=== PATIENT | female | born 1935 | race Caucasian/White ===

== ENCOUNTER 2016-08-01 13:33 | Emergency (ER) | payer OTHER ==
[2016-08-01] MEDS ORDERED: OXYMETAZOLINE 30 ML NASAL SPRAY EACHNARE ONE (13:46)
[2016-08-01] MEDS ORDERED: LETS SOLN TOPICAL 1 EA SYR TP ONE (13:46)
--- NOTE | 2016-08-01 13:50 | EDPHY ---
H & P Smoking Status: Never smoked Time Seen by Provider: 08/01/16 13:41 HPI/ROS: CHIEF COMPLAINT: Epistaxis left-sided HISTORY OF PRESENT ILLNESS: 80-year-old female on daily warfarin for history of pulmonary emboli, complaining of 30 minutes of pre-hospital epistaxis on the left side. Atraumatic. No dizziness. No chest pain. No back pain. No dyspnea. No headache. No nausea or vomiting. PHYSICAL EXAM (Prior to examination, patient consented to physical exam, hands were washed and my usual and customary physical exam procedures followed) 1) GENERAL: Well-developed, well-nourished, alert and oriented. Appears anxious . 2) HEAD: Normocephalic 3) HEENT: sclera anicteric. Left anterior epistaxis identified, slowly bleeding. 4) LUNGS: Breathing comfortably. (Chance Novak) Constitutional: Initial Vital Signs Heart Rate 95 08/01/16 13:35 Respiratory Rate 20 08/01/16 13:35 Blood Pressure 193/108 H 08/01/16 13:35 O2 Sat (%) 92 08/01/16 13:35 O2 Delivery Mode Room Air Allergies/Adverse Reactions: codeine [Codeine] Allergy (Mild, Verified 08/01/16 13:43) NAUSEA Home Medications: Medication Instructions Recorded Levothyroxine 08/04/15 Warfarin Sodium 08/04/15 Albuterol Sulfate [Proventil Hfa] 6.7 gm IH 08/01/16 Beclomethasone Qvar 40 [Qvar 40 120 puffs IH 08/01/16 (*)] Ibesartan 08/01/16 MDM/Departure - MDM Medications Given: Discontinued Medications Oxymetazoline HCl (Afrin Nasal Ona) 2 sprays EACHNARE EDNOW ONE Stop: 08/01/16 13:47 Last Admin: 08/01/16 14:00 Dose: 2 sprays Tetracaine/Epinephrine/Lidocaine (Lets Soln Topical) 1 ea TP EDNOW ONE Stop: 08/01/16 13:47 Last Admin: 08/01/16 14:00 Dose: 1 ea ED Course/Re-evaluation: The patient was evaluated and managed by the Physician Sample Sewer/ Nurse Practitioner. I discussed the patient's presentation and course with the midlevel provider with them and agree with the evaluation. My co-signature indicates that I have reviewed this chart and I agree with the findings and plan of care as documented. I am the secondary supervising physician. (Maribel Mccollum) Was re-evaluated with serial exams. Serial exams performed at 10, 20, 30 minutes post silver nitrate cauterization patient remains hemostatic. Discussed with her my usual and customary epistaxis precautions instructions. Recommend follow up with ear nose and throat on Thursday (today is Thursday). She feels comfortable being discharged. (Chance Novak) - Depart Disposition: Home, Routine, Self-Care Clinical Impression: Acute anterior epistaxis Condition: Good Instructions: Nosebleed (ED) Additional Instructions: If you develop further nosebleed place direct pressure for 20 minutes. If the bleeding continues return to the ER immediately. Referrals: Brit Romano MD [Medical Doctor] - 08/04/16
[2016-08-01] MEDS ORDERED: SILVER NITRATE APPLICATOR 1 APPL TP ONE ×2 (14:21→14:45)
[2016-08-01 14:34] VITALS: TEMP 97.2
[2016-08-01 14:44] LABS: % IMMATURE GRANULYOCYTES 0.5 % (0.0-1.1); ABSOLUTE IMMATURE GRANULOCYTES 0.03 10^3/uL (0.00-0.10); ADD DIFF? NO; ADD MORPH? NO; ADD SCAN? NO; ATYPICAL LYMPHOCYTE FLAG 10 (0-99); FRAGMENT RBC FLAG 0 (0-99); HEMATOCRIT 35.8 % (38.0-47.0); HEMOGLOBIN 12.3 g/dL (12.6-16.3); LEFT SHIFT FLG 0 (0-99); LIPEMIA HEMOLYSIS FLAG 90 (0-99); MEAN CELL HEMOGLOBIN 32.6 pg (27.9-34.1); MEAN CELL HEMOGLOBIN CONCENTR. 34.4 g/dL (32.4-36.7); MEAN PLATELET VOLUME 8.9 fL (8.7-11.7); PLATELET CLUMPS FLAG 10 (0-99); PLATELET COUNT 165 10^3/uL (150-400); RED BLOOD CELL COUNT 3.77 10^6/uL (4.18-5.33); RED CELL DISTRIBUTION WIDTH 13.6 % (11.5-15.2)
[2016-08-01 14:53] LABS: APTT 42.1 SEC (23.0-38.0); INR 2.39 (0.83-1.16); PROTIME(PATIENT) 26.3 SEC (12.0-15.0)
[2016-08-01 16:33] VITALS: BP 179/89; PULSE 79; RESP 16; O2SAT 94
== END 2016-08-01 16:33 | disposition home or self-care (01) ==
PROC: 2Y41X5Z Packing of Nasal Region using Packing Material (ICD-10-PCS; principal; 2016-08-01)
DX: R04.0 Epistaxis (principal); Z79.01 Long term (current) use of anticoagulants

== ENCOUNTER 2016-08-28 06:48 | Emergency (ER) | payer OTHER ==
[2016-08-28 06:56] VITALS: TEMP 97.9
--- NOTE | 2016-08-28 07:03 | EDPHY ---
H & P Stated Complaint: rectal bleeding since Sat, cauterized yesterday at PCP without relief HPI/ROS: CHIEF COMPLAINT: Rectal bleeding. HISTORY OF PRESENT ILLNESS: The patient is an 80-year-old female status post hemorrhoid cauterization yesterday who presents with rectal bleeding that began this morning. She takes coumadin. She reports having two episodes of rectal bleeding on Thursday and Thursday. Her treated her with Preparation H and Afrin. Yesterday her doctor cauterized a bleeding site. Today when she went to the bathroom the toilet bowl was coated in blood. She admits feeling chest heaviness, weakness, and lightheadedness. She denies vomiting, diarrhea, abdominal pain, or other complaints at this time. REVIEW OF SYSTEMS: General: Recent fever, being treated with antibiotics--not sure name of medication. A ten point review of systems was performed and is negative with the exception of the items mentioned in the HPI. Source: Patient Exam Limitations: No limitations - Personal History Current Tetanus/Diphtheria Vaccine: Unsure Current Tetanus Diphtheria and Acellular Pertussis (TDAP): Unsure - Medical/Surgical History Hx Asthma: Yes Hx Chronic Respiratory Disease: No Hx Diabetes: No Hx Cardiac Disease: No Hx Renal Disease: No Hx Cirrhosis: No Hx Alcoholism: No Hx HIV/AIDS: No Hx Splenectomy or Spleen Trauma: No Other PMH: 1. Asthma. 2. Cholecystectomy. 3. Hypothyroidism. 4. DVTs. 5. Tonsillectomy. 6. Hysterectomy. 7. Bilateral tubal ligation. 8. Chronic renal insufficiency. I reviewed the patient's past medical notes. - Social History Smoking Status: Never smoked Additional Social History: Nonsmoker. No alcohol use. Lives at home with her . - Physical Exam Exam: General Appearance: Alert. Vital signs reviewed. Blood pressure 135/80. Eyes: Pupils equal and round, no conjunctival injection, no discharge. Anicteric. ENT, Mouth: Mucous membranes are moist, no oropharyngeal erythema or edema. Neck: No lymphadenopathy, supple. Respiratory: Lungs are clear to auscultation; no wheezes, rales, or rhonchi. Cardiovascular: Regular rate and rhythm; no murmur, rub, or gallop. Gastrointestinal: Abdomen is soft and nontender, no masses or organomegaly, bowel sounds normal. Rectal: Hemorrhoid with blood clot protruding. Any manipulation causes some blood to ooze. Skin: Warm and dry, no rashes on exposed skin, normal color. Back: Nontender to palpation over the thoracolumbar spine. No CVAT. Extremities: No lower extremity edema, no calf tenderness or swelling. Neurological: Alert and oriented. Moving all four extremities easily and equally. Psychiatric: Normal affect. Constitutional: Initial Vital Signs Temperature (C) 36.6 C 08/28/16 06:49 Heart Rate 94 08/28/16 06:49 Respiratory Rate 16 08/28/16 06:49 Blood Pressure 135/80 H 08/28/16 06:49 O2 Sat (%) 95 08/28/16 06:49 O2 Delivery Mode Room Air Allergies/Adverse Reactions: codeine [Codeine] Allergy (Mild, Verified 08/01/16 13:43) NAUSEA Home Medications: Medication Instructions Recorded Levothyroxine 08/04/15 Warfarin Sodium 08/04/15 Albuterol Sulfate [Proventil Hfa] 6.7 gm IH 08/01/16 Beclomethasone Qvar 40 [Qvar 40 120 puffs 08/01/16 (*)] Ibesartan 08/01/16 Medical Decision Making ED Course/Re-evaluation: This 80-year-old female anticoagulated on Coumadin for a history of DVTs presents with bleeding from her hemorrhoid. She had her first two episodes of bleeding on Thursday and Thursday (4-5 days ago). Her primary care provider cauterized the hemorrhoid yesterday and the bleeding stopped for a period of time, but it returned this morning.Water in the toilet bowl was red this this morning. Her has been applying Preparation H and Afrin spray to help control the bleeding. On arrival the blood has clotted and she is not actively bleeding. If I manipulate the hemorrhoid I can elicit a small amount of oozing blood. She does admit to feeling weak and lightheaded. She admits a fever and cough but her primary care provider has already placed her on antibiotics for sinusitis. Her primary care provider also jarett labs and noted a low INR. We will check blood work on this patient. An IV was established and labs ordered. I reviewed the patient's blood work. INR 1.78. Hgb and Hct 13 and 38. Creatinine elevated, slightly higher than previous values. 0800: Reassessed patient. She tells me that since Thursday, she has not been taking her full dose of Coumadin because of the rectal bleeding. Surgifoam applied to external hemorrhoid. Plan for Dr. Alatorre to consult with the patient. 0956: Reassessed patient. 1006: Consulted with Dr. Tuttle, surgery. Patient re-examined. Small clot that was present earlier is now gone (she has used the toilet since my first exam). 11:00The hemorrhoid is not currently bleeding. In addition to Surgifoam pressure has been applied to this site. It was cauterized yesterday by her PCP. Dr Tuttle recommended suturing if needed, but I do not think that suturing is needed. I think that she can safely return home, as she is hemodynamically stable and not currently bleeding. Her INR is subtherapeutic. I recommend surgical follow up and return if bleeding recurs. She is not in pain. the bleeding appears to be coming from the external hemorrhoid and I have no reason to worry about internal hemorrhoids at this time. Nor do I suspect other causes of GI bleeding such as neoplasm, infection, diverticula, and angiodysplasia. - Data Points Laboratory Results: Laboratory Results 08/28/16 07:18 08/28/16 07:18 Medications Given: Discontinued Medications Acetaminophen (Tylenol) 500 mg PO EDNOW ONE Stop: 08/28/16 11:23 Last Admin: 08/28/16 11:30 Dose: 500 mg Departure - Departure Disposition: Home, Routine, Self-Care Clinical Impression: Bleeding hemorrhoid Condition: Good Instructions: Hemorrhoids (ED), Rectal Bleeding (ED) Additional Instructions: Call Dr. Alatorre, surgery, to set up a follow up appointment. Return for any serious worsening of condition. As we discussed, apply pressure if your bleeding returns. Referrals: AVRIL JAIN [Primary Care Provider] - As per Instructions Shar Alatorre MD [Medical Doctor] - As per Instructions Report Scribed for: Rosaura Manuel Report Scribed by: Mathew Red Date of Report: 08/28/16 Time of Report: 07:12 Physician Review and Approval Statement: 08/28/16 07:03 Portions of this note were transcribed by the medical education specialist. I, Dr. Rosaura Manuel, personally performed the history, physical exam, and medical decision- making; and confirmed the accuracy of the information in the transcribed note.
[2016-08-28 07:30] LABS: % IMMATURE GRANULYOCYTES 0.6 % (0.0-1.1); ABSOLUTE IMMATURE GRANULOCYTES 0.05 10^3/uL (0.00-0.10); ADD DIFF? NO; ADD MORPH? NO; ADD SCAN? NO; ATYPICAL LYMPHOCYTE FLAG 10 (0-99); FRAGMENT RBC FLAG 0 (0-99); LEFT SHIFT FLG 10 (0-99); LIPEMIA HEMOLYSIS FLAG 90 (0-99); MEAN CELL HEMOGLOBIN 32.6 pg (27.9-34.1); MEAN CELL HEMOGLOBIN CONCENTR. 34.2 g/dL (32.4-36.7); MEAN CELL VOLUME 95.2 fL (81.5-99.8); MEAN PLATELET VOLUME 9.5 fL (8.7-11.7); PLATELET CLUMPS FLAG 0 (0-99); PLATELET COUNT 155 10^3/uL (150-400); RED BLOOD CELL COUNT 3.99 10^6/uL (4.18-5.33); RED CELL DISTRIBUTION WIDTH 13.1 % (11.5-15.2)
[2016-08-28 07:39] LABS: INR 1.78 (0.83-1.16); PROTIME(PATIENT) 20.8 SEC (12.0-15.0)
[2016-08-28 07:44] LABS: ANION GAP 11 mEq/L (8-16); CALCIUM 10.4 mg/dL (8.5-10.4); CARBON DIOXIDE 24 mEq/l (22-31); CHLORIDE 105 mEq/L (97-110); CREATININE 1.3 mg/dL (0.6-1.0); GLOMERULAR FILTRATION RATE 39; GLUCOSE 119 mg/dL (70-100); POTASSIUM 4.4 mEq/L (3.5-5.2); SODIUM 140 mEq/L (134-144)
[2016-08-28 10:54] VITALS: BP 145/110; PULSE 82; RESP 15; O2SAT 94
[2016-08-28] MEDS ORDERED: ACETAMINOPHEN 500 MG TAB ONE (11:21)
[2016-08-28] MEDS ORDERED: ACETAMINOPHEN 500 MG TAB PO ONE (11:22)
== END 2016-08-28 12:46 | disposition home or self-care (01) ==
DX: K64.9 Unspecified hemorrhoids (principal); J45.909 Unspecified asthma, uncomplicated; Z79.01 Long term (current) use of anticoagulants

== ENCOUNTER 2016-09-17 11:03 | Inpatient (IN) | payer OTHER ==
--- NOTE | 2016-09-17 11:30 | CPEKG ---
Heart Rate: 71 RR Interval: 845 P-R Interval: 152 QRSD Interval: 82 QT Interval: 372 QTC Interval: 405 P Itmann: 74 QRS Itmann: 76 T Wave Itmann: 46 EKG Severity - NORMAL ECG - EKG Impression: SINUS RHYTHM Electronically Signed By: Maine Jackson 17-Sep-2016 15:32:58
[2016-09-17 11:47] LABS: % IMMATURE GRANULYOCYTES 0.4 % (0.0-1.1); ABSOLUTE IMMATURE GRANULOCYTES 0.03 10^3/uL (0.00-0.10); ADD DIFF? NO; ADD MORPH? NO; ADD SCAN? NO; ATYPICAL LYMPHOCYTE FLAG 0 (0-99); FRAGMENT RBC FLAG 0 (0-99); HEMOGLOBIN 13.1 g/dL (12.6-16.3); LEFT SHIFT FLG 0 (0-99); LIPEMIA HEMOLYSIS FLAG 80 (0-99); MEAN CELL HEMOGLOBIN 32.7 pg (27.9-34.1); MEAN CELL HEMOGLOBIN CONCENTR. 33.6 g/dL (32.4-36.7); MEAN CELL VOLUME 97.3 fL (81.5-99.8); PLATELET CLUMPS FLAG 0 (0-99); PLATELET COUNT 190 10^3/uL (150-400); RED BLOOD CELL COUNT 4.01 10^6/uL (4.18-5.33); RED CELL DISTRIBUTION WIDTH 13.2 % (11.5-15.2)
[2016-09-17 11:59] LABS: COLOR LT. YELLOW; LEUKOCYTE ESTERASE,URINE NEGATIVE (NEGATIVE); NITRITE,URINE NEGATIVE (NEGATIVE)
[2016-09-17 12:02] LABS: ANION GAP 11 mEq/L (8-16); CALCIUM 10.5 mg/dL (8.5-10.4); CARBON DIOXIDE 24 mEq/l (22-31); CHLORIDE 103 mEq/L (97-110); CREATININE 1.4 mg/dL (0.6-1.0); GLOMERULAR FILTRATION RATE 36; GLUCOSE 102 mg/dL (70-100); POTASSIUM 4.9 mEq/L (3.5-5.2); SODIUM 138 mEq/L (134-144)
[2016-09-17] MEDS ORDERED: OXYCODONE/APAP 5/325 TAB PO ONE ×2 (12:05→13:42)
[2016-09-17] MEDS ORDERED: OXYCODONE/APAP 5/325 TAB ONE (12:07)
[2016-09-17 12:14] LABS: BACTERIA TRACE /hpf (NONE SEEN); WBC,URINE 0-1 /hpf (0-3)
--- NOTE | 2016-09-17 13:12 | EDPHY ---
H & P Time Seen by Provider: 09/17/16 12:05 HPI/ROS: CHIEF COMPLAINT: Back pain, hemorrhoids HISTORY OF PRESENT ILLNESS: Patient is an 80 year female who presents emergency department with multiple complaints. She states that she has been feeling fatigued over the past 1-2 weeks. She feels as though she has been slowly going downhill. She now complains primarily of low back/sacral pain. She states that radiates upper spine. It is worse with movement and touch. She states her hemorrhoids have been inflamed she saw Dr. Alvarado last week. He performed an exam stated there was nothing to ligate. She states that her hemorrhoids have been improving over the past week. She denies nausea or vomiting. No fevers or chills. No weight loss. No dysuria or frequency. REVIEW OF SYSTEMS: My complete review of systems is negative except as mentioned in the HPI. Past Medical/Surgical History: Includes asthma, hypothyroidism, DVT, hemorrhoids, renal insufficiency Past surgical history: Includes cholecystectomy, tonsillectomy, hysterectomy, tubal ligation Social history: She lives at home Smoking Status: Never smoked Physical Exam: Vital signs noted GENERAL: Moderate acute distress, alert. HEENT: Eyes normal to inspection, normal pharynx, no signs of dehydration. NECK: No thyromegaly, no lymphadenopathy, supple. RESPIRATORY: Clear to auscultation bilaterally, no rales, rhonchi or wheezing. CVS: Regular rate and rhythm, no rubs, murmurs, or gallops. ABDOMEN: Soft, nontender, nondistended, no organomegaly. Benign. BACK: Normal to inspection, no CVA tenderness. Rectal: No palpable mass. Nontender. No active bleeding. Brown stool. SKIN: Normal color, no rash, warm, dry. No pallor. EXTREMITIES: No pedal edema, no calf tenderness, no Homans sign or cords, no joint swelling. NEURO/PSYCH: Alert and oriented x3, normal mood and affect, normal motor sensory exam. Constitutional: Initial Vital Signs Temperature (C) 36.8 C 09/17/16 11:13 Heart Rate 71 09/17/16 11:13 Respiratory Rate 20 09/17/16 11:13 Blood Pressure 148/72 H 09/17/16 11:13 O2 Sat (%) 99 09/17/16 11:13 O2 Delivery Mode Room Air Allergies/Adverse Reactions: codeine [Codeine] Allergy (Mild, Verified 09/17/16 11:13) NAUSEA Home Medications: Medication Instructions Recorded Levothyroxine 08/04/15 Warfarin Sodium 08/04/15 Albuterol Sulfate [Proventil Hfa] 6.7 gm 08/01/16 Beclomethasone Qvar 40 [Qvar 40 120 puffs IH 08/01/16 (*)] Ibesartan 08/01/16 Medical Decision Making - Diagnostics Imaging Results: Imaging Impressions Abdomen CT 09/17/16 12:50 Impression: 1. Diverticulosis sigmoid colon. No evidence for diverticulitis or abscess. 2. Moderate constipation. 3. Other chronic findings as above, which are stable. Results called and discussed with Dr. Maine Jackson, on September 17, 2016 at 1436 hours. ED Course/Re-evaluation: In the emergency department I discussed possible etiologies with the patient. IV was placed. Laboratory studies were obtained. Patient was given morphine 4 mg IV. Because the patient's back pain a presentation CT with IV contrast was ordered. The patient's creatinine was 1.4. She was given normal saline 500 mL IV prior to the study. I rechecked the patient on numerous occasions. She continued to complain of low back pain. On recheck the patient was anxious in had low back pain. She was given Ativan 0.5 mg IV. On recheck the patient stated that medicine did help her. I discussed all results and answer questions. I discussed disposition options. Attempt to get the patient up to ambulate to see if she could be discharged home. She feels too weak. She continues to have low back pain. She will be admitted for further observation. Dr. Lockhart. I discussed this with the hospitalist service. Differential Diagnosis: My differential includes but is not limited to sacral pain, sciatica, disc herniation, malignancy, mass, epidural abscess, rectal abscess, hemorrhoids - Data Points Laboratory Results: Laboratory Results 09/17/16 11:34 09/17/16 11:41 09/17/16 09/17/16 09/17/16 Unknown 12:54 11:41 WBC RBC Hgb Hct MCV MCH MCHC RDW Plt Count MPV Neut % (Auto) Lymph % (Auto) Grundy % (Auto) Eos % (Auto) Baso % (Auto) Nucleat RBC Rel Count Absolute Neuts (auto) Absolute Lymphs (auto) Absolute Monos (auto) Absolute Eos (auto) Absolute Basos (auto) Absolute Nucleated RBC Immature Gran % Immature Gran # Sodium 138 mEq/L mEq/L (134-144) Potassium 4.9 mEq/L mEq/L (3.5-5.2) Chloride 103 mEq/L mEq/L (97-110) Carbon Dioxide 24 mEq/l mEq/l (22-31) Anion Gap 11 mEq/L mEq/L (8-16) BUN 30 mg/dL H mg/dL (7-23) Creatinine 1.4 mg/dL H mg/dL (0.6-1.0) Estimated GFR 36 Glucose 102 mg/dL H mg/dL (70-100) Calcium 10.5 mg/dL H mg/dL (8.5-10.4) Troponin I < 0.012 ng/mL ng/mL (0-0.034) Urine Color Urine Appearance Urine pH Ur Specific [place] Urine Protein Urine Ketones Urine Blood Urine Nitrate Urine Bilirubin Urine Urobilinogen Ur Leukocyte Esterase Urine RBC Urine WBC Ur Epithelial Cells Urine Bacteria Urine Glucose Stool Occult Bld Scrn NEGATIVE (NEGATIVE) 09/17/16 09/17/16 11:34 11:21 WBC 7.61 10^3/uL 10^3/uL (3.80-9.50) RBC 4.01 10^6/uL L 10^6/uL (4.18-5.33) Hgb 13.1 g/dL g/dL (12.6-16.3) Hct 39.0 % % (38.0-47.0) MCV 97.3 fL fL (81.5-99.8) MCH 32.7 pg pg (27.9-34.1) MCHC 33.6 g/dL g/dL (32.4-36.7) RDW 13.2 % % (11.5-15.2) Plt Count 190 10^3/uL 10^3/uL (150-400) MPV 9.0 fL fL (8.7-11.7) Neut % (Auto) 67.8 % % (39.3-74.2) Lymph % (Auto) 26.5 % % (15.0-45.0) Grundy % (Auto) 4.9 % % (4.5-13.0) Eos % (Auto) 0.1 % L % (0.6-7.6) Baso % (Auto) 0.3 % % (0.3-1.7) Nucleat RBC Rel Count 0.0 % % (0.0-0.2) Absolute Neuts (auto) 5.16 10^3/uL 10^3/uL (1.70-6.50) Absolute Lymphs (auto) 2.02 10^3/uL 10^3/uL (1.00-3.00) Absolute Monos (auto) 0.37 10^3/uL 10^3/uL (0.30-0.80) Absolute Eos (auto) 0.01 10^3/uL L 10^3/uL (0.03-0.40) Absolute Basos (auto) 0.02 10^3/uL 10^3/uL (0.02-0.10) Absolute Nucleated RBC 0.00 10^3/uL 10^3/uL (0-0.01) Immature Gran % 0.4 % % (0.0-1.1) Immature Gran # 0.03 10^3/uL 10^3/uL (0.00-0.10) Sodium Potassium Chloride Carbon Dioxide Anion Gap BUN Creatinine Estimated GFR Glucose Calcium Troponin I Urine Color LT. YELLOW Urine Appearance CLEAR Urine pH 6.0 (5.0-7.5) Ur Specific [place] <= 1.005 (1.002-1.030) Urine Protein NEGATIVE (NEGATIVE) Urine Ketones NEGATIVE (NEGATIVE) Urine Blood 3+ H (NEGATIVE) Urine Nitrate NEGATIVE (NEGATIVE) Urine Bilirubin NEGATIVE (NEGATIVE) Urine Urobilinogen 0.2 EU EU (0.2-1.0) Ur Leukocyte Esterase NEGATIVE (NEGATIVE) Urine RBC 1-3 /hpf /hpf (0-3) Urine WBC 0-1 /hpf /hpf (0-3) Ur Epithelial Cells TRACE /lpf /lpf (NONE-1+) Urine Bacteria TRACE /hpf H /hpf (NONE SEEN) Urine Glucose NEGATIVE (NEGATIVE) Stool Occult Bld Scrn Medications Given: Discontinued Medications Fentanyl (Sublimaze) 50 mcg IVP EDNOW ONE Stop: 09/17/16 13:17 Last Admin: 09/17/16 13:46 Dose: Not Given Sodium Chloride (Ns) 1,000 mls @ 0 mls/hr IV ONCE ONE PRN Reason: Wide Open Stop: 09/17/16 13:25 Last Admin: 09/17/16 13:46 Dose: 1,000 mls Lorazepam (Ativan Injection) 0.5 mg IVP EDNOW ONE Stop: 09/17/16 14:21 Last Admin: 09/17/16 14:43 Dose: 0.5 mg Ondansetron HCl (Zofran) 4 mg IVP EDNOW ONE Stop: 09/17/16 13:17 Last Admin: 09/17/16 13:46 Dose: Not Given Oxycodone/Acetaminophen (Percocet 5/325) 1 tab PO EDNOW ONE Stop: 09/17/16 12:06 Last Admin: 09/17/16 12:08 Dose: 1 tab Oxycodone/Acetaminophen (Percocet 5/325) 1 tab PO EDNOW ONE Stop: 09/17/16 13:43 Last Admin: 09/17/16 13:46 Dose: 1 tab Departure - Departure Disposition: [facility] Inpatient Acute Clinical Impression: Weakness Low back pain Qualifiers: Chronicity: acute Back pain laterality: bilateral Sciatica presence: without sciatica Qualified Code(s): M54.5 - Low back pain Condition: Good Referrals: AVRIL JAIN [Primary Care Provider] - As per Instructions
[2016-09-17] MEDS ORDERED: ONDANSETRON 4 MG/2 ML VIAL IVP ONE (13:16)
[2016-09-17] MEDS ORDERED: fentaNYL 100 MCG/2 ML INJ IVP ONE (13:16)
[2016-09-17] MEDS ORDERED: NS 1,000 ML IV ONE (13:24)
[2016-09-17] MEDS ORDERED: IOPAMIDOL (ISOVUE-300) 100 ML BTL IV ONE (13:31)
[2016-09-17] MEDS ORDERED: LORazepam 2 MG/ML INJ ONE (14:15)
[2016-09-17] MEDS ORDERED: LORazepam 2 MG/ML INJ IVP ONE (14:20)
[2016-09-17 15:56] LABS: INR 2.53 (0.83-1.16); PROTIME(PATIENT) 27.5 SEC (12.0-15.0)
[2016-09-17] MEDS ORDERED: ONDANSETRON 4 MG/2 ML VIAL IVP PRN (16:24)
[2016-09-17] MEDS ORDERED: ONDANSETRON DISINTEGRATING 4 MG TAB PO PRN (16:24)
[2016-09-17] MEDS ORDERED: MAGNESIUM HYDROXIDE 30 ML UDCUP PO PRN (16:26)
[2016-09-17] MEDS ORDERED: LACTULOSE 20 GM/30 ML UDCUP PO PRN (16:26)
[2016-09-17] MEDS ORDERED: BISACODYL 10 MG SUPP PR PRN (16:26)
[2016-09-17] MEDS ORDERED: ZOLPIDEM TARTRATE 5 MG TAB PO PRN (17:01)
[2016-09-17] MEDS: oxyCODONE IR 5 MG TAB PO PRN ×2 (17:22→21:35)
[2016-09-17] MEDS: ACETAMINOPHEN 325 MG TAB PO PRN (17:22)
--- NOTE | 2016-09-17 17:43 | GHP ---
[f rep st] HISTORY AND PHYSICAL DATE OF ADMISSION: 09/17/2016 CHIEF COMPLAINT: Fatigue, lower back pain. HISTORY OF PRESENT ILLNESS: an 80-year-old female with a history of DVT, asthma , CKD, hypothyroidism, presenting with fatigue for the past 2 weeks that she attributes to a recent hemorrhoidal bleed the day after [place]. Had intermittent rectal bleeding August 23-. Seen here in the emergency room on August 28, 2016 for rectal bleeding after a hemorrhoid cauterized by her PCP She is followed by Dr. Alvarado, who performed a sigmoidoscopy on 09/09/2016 that showed a small internal hemorrhoid and external hemorrhoid, nothing to band. Pain is another reason she presents today. Has new right-sided hip and sacral pain that is hot and burning in nature. She cannot stand to sit on her buttocks due to the pain. Denies any recent trauma. No fevers, chills or sweats. No nausea, vomiting, diarrhea. No numbness or tingling. No weakness in the leg. Denies dysuria, has been having regular bowel movements. REVIEW OF SYSTEMS: I completed a 10-point review of systems, negative except as noted in HPI. PAST MEDICAL HISTORY: Lower extremity DVT, history of Clostridium difficile, asthma, CKD with a baseline creatinine of 1.3 to 1.4, hypothyroidism (last checked in 2012 at 0.2), history of polio as a teenager, hemorrhoids. PAST SURGICAL HISTORY: Cholecystectomy, with subsequent hemoperitoneum, tonsillectomy, hysterectomy, tubal ligation. FAMILY HISTORY: Mom with ovarian cancer, father with prostate cancer. SOCIAL HISTORY: Lives with her in [place], no tobacco, alcohol or illicit drugs. ALLERGIES: Codeine. HOME MEDICATIONS: 1. Multivitamin. 2. Herbal supplement. 3. Vitamin B12 1000 mcg daily. 4. Ambien p.r.n. 5. Irbesartan 150 mg daily. 6. Coumadin 4 mg daily. 7. Levothyroxine 75 mcg daily. 8. Qvar 2 puffs inhaled daily. PHYSICAL EXAM: VITAL SIGNS: Temperature is 37.2, blood pressure 140/71, heart rate 70s, respirations 16, 94% on room air. GENERAL: Patient is lying in bed, in no acute distress. HEENT: PERRLA, EOMI. Oropharynx clear. CV: Regular rate and rhythm. No murmurs, gallops, or rubs. LUNGS: Clear to auscultation bilaterally. ABDOMEN: Soft, nontender, nondistended. : No suprapubic or CVA tenderness. MUSCULOSKELETAL: Point tenderness over the ilium on the right side, with 5/5 upper and lower extremity strength. NEUROLOGIC: Cranial nerves II-XII intact. Normal sensation in lower extremities to touch. PSYCH: Alert and oriented x3. LABS: WBC 7, hemoglobin 13, hematocrit 39, platelets 190, INR 2.5, PT 27. Sodium 138, potassium 4.9, chloride 103, BUN 30, creatinine 1.4, baseline 1.3 ( glucose 102), calcium 10.5, troponin less than 0.012. TSH pending, CRP and ESR pending. IMAGING: Abdominal CT shows diverticulosis of sigmoid colon. No evidence of abscess. Moderate constipation. ASSESSMENT AND PLAN: 1. Fatigue: H/H stable, negative UA. Check TSH. 2. Lower back/sacral pain: no recent trauma. CT showed constipation, no abscess. She is having normal bowel movements. Afebrile without leukocytosis, thus less suspicion for infection. Point tenderness over her ischium. Check ESR/ CRP and plain films. No flag signs. Could consider MRI. PT/OT to evaluate. We will control pain with low-dose oxycodone. 3. Hypothyroidism: check TSH. 4. History of deep venous thrombosis: continue Coumadin. 5. Chronic kidney disease: creatinine is at baseline. 6. History of hemorrhoids: recent scope showed small internal hemorrhoids, external hemorrhoid, not amenable to banding. H/H stable. Has had minimal bleeding since that time. 7. Asthma, continue home medications. 8. Diet: Regular. 9. DVT prophylaxis, on Coumadin. DISPOSITION: Patient warrants inpatient admission, given inability to ambulate , requiring opioids and PT evaluation. /[id number]/MODL MTDD
[2016-09-17 17:49] LABS: C-REACTIVE PROTEIN 5.4 mg/L (<10.0)
[2016-09-17 18:05] LABS: SEDIMENTATION RATE 12 MM/HR (0-30)
[2016-09-17] MEDS ORDERED: NS 1,000 ML IV SCH (19:00)
[2016-09-17] MEDS: SENNOSIDES/DOCUSATE SODIUM TAB PO SCH (20:16)
[2016-09-18] MEDS: oxyCODONE IR 5 MG TAB PO PRN ×2 (03:28→19:45)
[2016-09-18 05:50] LABS: ANION GAP 6 mEq/L (8-16); CALCIUM 9.2 mg/dL (8.5-10.4); CARBON DIOXIDE 23 mEq/l (22-31); CHLORIDE 109 mEq/L (97-110); CREATININE 1.2 mg/dL (0.6-1.0); GLOMERULAR FILTRATION RATE 43; GLUCOSE 86 mg/dL (70-100); POTASSIUM 4.6 mEq/L (3.5-5.2); SODIUM 138 mEq/L (134-144)
[2016-09-18] MEDS ORDERED: LEVOTHYROXINE 75 MCG TAB PO SCH (06:00)
[2016-09-18 06:49] LABS: INR 2.77 (0.83-1.16); PROTIME(PATIENT) 29.6 SEC (12.0-15.0)
[2016-09-18] MEDS: BECLOMETHASONE QVAR 80 MDI IH SCH (08:30)
[2016-09-18] MEDS ORDERED: IRBESARTAN 150 MG TAB PO SCH (09:00)
[2016-09-18] MEDS ORDERED: Herbals/Supplements -Info Only PO SCH (09:00)
[2016-09-18] MEDS: CYANO/VITAMIN B12 1000 MCG TAB PO SCH (09:20)
[2016-09-18] MEDS: ACETAMINOPHEN 325 MG TAB PO PRN ×3 (09:22→20:54)
[2016-09-18] MEDS: MULTIVITAMINS 1 EACH TAB PO SCH (09:22)
[2016-09-18] MEDS: SENNOSIDES/DOCUSATE SODIUM TAB PO SCH ×2 (09:22→20:54)
[2016-09-18] MEDS: POLYETHYLENE GLYCOL 3350 17 GM PKT PO PRN (09:23)
[2016-09-18] MEDS ORDERED: WARFARIN SODIUM 4 MG TAB PO SCH (16:00)
--- NOTE | 2016-09-18 16:10 | HOSPPROG ---
Hospitalist Progress Note Assessment/Plan: * Severe neck pain and posterior cervical headache -nothing to suggest meningitis - no fever/leukocytosis/ ESR 12 -head CT negative -MRI Cspine negative -? muscular * DVT - therapeutic on warfarin * CKD - at baseline * Hemorrhoids -recent cauterization by PCP -f/u flex sig with Dr. Alvarado - no intervention Subjective: Severe pain occipital headache and upper cervical spine for 5 days, radiates down to lumbar region Objective: Vital Signs Temp Pulse Resp BP Pulse Ox 37.1 C 66 18 147/78 H 96 09/18/16 15:17 09/18/16 15:17 09/18/16 15:17 09/18/16 15:17 09/18/16 15:17 Laboratory Results 09/17/16 Unknown 09/18/16 04:55 09/17/16 09/18/16 09/19/16 05:59 05:59 05:59 Intake Total 925 760 Balance 925 760 PT 29.6 SEC (12.0-15.0) H 09/18/16 04:55 INR 2.77 (0.83-1.16) H 09/18/16 04:55 - Physical Exam Constitutional: no apparent distress, appears nourished, not in pain Cardiovascular: regular rate and rhythym, no murmur, rub, or gallop Respiratory: no respiratory distress, no rales or rhonchi, clear to auscultation Gastrointestinal: normoactive bowel sounds, soft, non-tender abdomen, no palpable masses Skin: no rashes or abrasions, no fluctuance, no induration Neurologic: AAOx3, sensation intact bilaterally Psychiatric: interacting appropriately, not anxious, not encephalopathic, thought process linear ICD10 Worksheet Patient Problems: Problems Problem Status Onset Low back pain Acute Weakness Acute Abdominal pain Acute C. difficile diarrhea Acute Hemoperitoneum Acute
[2016-09-18] MEDS: WARFARIN SODIUM 4 MG TAB PO SCH (16:41)
[2016-09-18] MEDS: METHOCARBAMOL 750 MG TAB PO PRN (17:00)
[2016-09-19] MEDS: ACETAMINOPHEN 325 MG TAB PO PRN ×4 (04:57→21:02)
[2016-09-19] MEDS: LEVOTHYROXINE 88 MCG TAB PO SCH ×2 (04:58→04:59)
[2016-09-19] MEDS: METHOCARBAMOL 750 MG TAB PO PRN ×5 (05:01→21:05)
[2016-09-19 05:43] LABS: ANION GAP 7 mEq/L (8-16); CALCIUM 9.6 mg/dL (8.5-10.4); CARBON DIOXIDE 24 mEq/l (22-31); CHLORIDE 109 mEq/L (97-110); CREATININE 1.3 mg/dL (0.6-1.0); GLOMERULAR FILTRATION RATE 39; GLUCOSE 91 mg/dL (70-100); POTASSIUM 4.6 mEq/L (3.5-5.2); SODIUM 140 mEq/L (134-144)
[2016-09-19 05:44] LABS: INR 2.61 (0.83-1.16); PROTIME(PATIENT) 28.2 SEC (12.0-15.0)
[2016-09-19] MEDS: SENNOSIDES/DOCUSATE SODIUM TAB PO SCH ×2 (07:56→21:00)
[2016-09-19] MEDS: CYANO/VITAMIN B12 1000 MCG TAB PO SCH (07:56)
[2016-09-19] MEDS: MULTIVITAMINS 1 EACH TAB PO SCH (07:56)
[2016-09-19] MEDS: IRBESARTAN 150 MG TAB PO SCH (07:57)
[2016-09-19] MEDS: POLYETHYLENE GLYCOL 3350 17 GM PKT PO PRN (07:57)
[2016-09-19] MEDS: BECLOMETHASONE QVAR 80 MDI IH SCH (07:58)
[2016-09-19] MEDS ORDERED: WARFARIN SODIUM 1 MG TAB PO SCH (09:00)
[2016-09-19] MEDS ORDERED: GABAPENTIN 300 MG CAP PO ONE (10:57)
[2016-09-19] MEDS: oxyCODONE IR 5 MG TAB PO PRN ×2 (11:40→15:06)
[2016-09-19] MEDS: WARFARIN SODIUM 4 MG TAB PO SCH (15:04)
--- NOTE | 2016-09-19 16:45 | HOSPPROG ---
Hospitalist Progress Note Assessment/Plan: * Sacral/pelvic pain s/p recent cautery of hemorrhoid -pelvis CT negative -f/u flex sig by Dr. Alvarado unremarkable -progressive debilitating pain for weeks - ? spasm or nerve injury -check MRI pelvis including sacrum/coccyx -try Robaxin, gabapentin * Neck pain/headache - much better today - ? spasm * DVT - therapeutic on warfarin * CKD - at baseline * Elevated TSH - synthroid increased Subjective: Pain in neck and head minimal today. Now back to pelvic/sarcral pain that she has been suffering with since . Dramatic health decline over this period due to this pain. Can't sit down. Extreme fatigue. Objective: Vital Signs Temp Pulse Resp BP Pulse Ox 37.0 C 67 14 158/70 H 94 09/19/16 16:00 09/19/16 16:00 09/19/16 16:00 09/19/16 16:00 09/19/16 16:00 Laboratory Results 09/17/16 Unknown 09/19/16 04:45 09/18/16 09/19/16 09/20/16 05:59 05:59 05:59 Intake Total 925 1680 Output Total 1000 Balance 925 680 PT 28.2 SEC (12.0-15.0) H 09/19/16 04:45 INR 2.61 (0.83-1.16) H 09/19/16 04:45 - Time Spent With Patient Time Spent with Patient: greater than 35 minutes (very long time spent with patient really trying to detail her pain and understand where it is) Time Spent with Patient: Greater than 35 minutes spent on this patients care, greater than 50% of time spent counseling, educating, and coordinating care regarding the above mentioned plan. - Physical Exam Constitutional: no apparent distress, appears nourished, not in pain Cardiovascular: regular rate and rhythym, no murmur, rub, or gallop Respiratory: no respiratory distress, no rales or rhonchi, clear to auscultation Gastrointestinal: other (rectal area look okay except for mild external hemorrhoids. Area with pain lateral to rectum, no obvious skin change or defomity) Skin: no rashes or abrasions, no fluctuance, no induration Neurologic: AAOx3, sensation intact bilaterally Psychiatric: interacting appropriately, not anxious, not encephalopathic, thought process linear ICD10 Worksheet Patient Problems: Problems Problem Status Onset Low back pain Acute Weakness Acute Abdominal pain Acute C. difficile diarrhea Acute Hemoperitoneum Acute
[2016-09-20] MEDS: ACETAMINOPHEN 325 MG TAB PO PRN ×4 (03:56→21:06)
[2016-09-20] MEDS: LEVOTHYROXINE 88 MCG TAB PO SCH (03:56)
[2016-09-20 05:34] LABS: INR 2.72 (0.83-1.16); PROTIME(PATIENT) 29.2 SEC (12.0-15.0)
[2016-09-20] MEDS: IRBESARTAN 150 MG TAB PO SCH (08:54)
[2016-09-20] MEDS: METHOCARBAMOL 750 MG TAB PO PRN ×3 (08:54→16:41)
[2016-09-20] MEDS: MULTIVITAMINS 1 EACH TAB PO SCH (08:55)
[2016-09-20] MEDS: CYANO/VITAMIN B12 1000 MCG TAB PO SCH (08:55)
[2016-09-20] MEDS: BECLOMETHASONE QVAR 80 MDI IH SCH (08:57)
[2016-09-20] MEDS: SENNOSIDES/DOCUSATE SODIUM TAB PO SCH ×2 (08:57→21:06)
[2016-09-20] MEDS: GABAPENTIN 300 MG CAP PO SCH ×3 (08:58→21:07)
[2016-09-20] MEDS: oxyCODONE IR 5 MG TAB PO PRN ×2 (10:23→14:42)
--- NOTE | 2016-09-20 12:28 | HOSPPROG ---
Hospitalist Progress Note Assessment/Plan: 80-year-old admitted with failure to thrive increasing pelvic and buttock pain. This started after hemorrhoid surgery and a car ride to [place]. She is feeling stronger with IV fluids but continues to have fairly significant buttock pain. There has been no numbness or tingling. # Sacral/ buttock pain for about a month. This started related to recent hemorrhoid surgery. She did have an outpatient sigmoidoscopy which was Unremarkable. she has improved since admission but continues to have pain in her buttock area right and left side. I reviewed the patient's MRI with the patient and . * Probable tendinitis and muscle tear contributing to her pain. Unclear how she had this injury although possibly related to her car ride. I reviewed this with sure old black would who states certainly the pain could be related. * Had Lidoderm patch * continue gabapentin * ice as needed * physical therapy * discharge planning * she will likely need orthopedic follow-up as an outpatient # recent hemorrhoidectomy, followed by Dr. Alvarado # neck pain and headache: This is not a new finding for her but she gets this intermittently. Stable today. # History of DVT followed by Dr. Salmeron, therapeutic on warfarin # chronic kidney disease, at baseline # elevated TSH, Synthroid increased from 75-88 mcg daily Subjective: patient new to me and chart reviewed. Discussed with Denise Celis regarding MRI findings. Patient continues to have buttock pain but slowly improving. She is able to ambulate with a walker. Objective: Vital Signs Temp Pulse Resp BP Pulse Ox 37.1 C 71 16 141/64 H 93 09/20/16 07:16 09/20/16 07:16 09/20/16 07:16 09/20/16 07:16 09/20/16 07:16 Laboratory Results 09/17/16 Unknown 09/19/16 04:45 09/19/16 09/20/16 09/21/16 05:59 05:59 05:59 Intake Total 1680 Output Total 1000 Balance 680 PT 29.2 SEC (12.0-15.0) H 09/20/16 05:01 INR 2.72 (0.83-1.16) H 09/20/16 05:01 - Physical Exam Constitutional: appears nourished, uncomfortable Eyes: PERRL, anicteric sclera, EOMI Ears, Nose, Mouth, Throat: moist mucous membranes, hearing normal, ears appear normal Gastrointestinal: normoactive bowel sounds, soft, non-tender abdomen Skin: warm, normal color, no rashes or abrasions, No pressure ulcer Musculoskeletal: muscular tenderness ( tenderness on the right buttock to deep palpation, no muscle spasms no tenderness on greater trochanteric), abnormal gait ( Walks with a walker), No asymmetric calves, No joint effusion Neurologic: AAOx3, sensation intact bilaterally, No weakness, No numbness, No facial droop Psychiatric: interacting appropriately, not anxious, not encephalopathic, thought process linear ICD10 Worksheet Patient Problems: Problems Problem Status Onset Abdominal pain Acute Hemoperitoneum Acute C. difficile diarrhea Acute Low back pain Acute Weakness Acute
[2016-09-20] MEDS: LIDOCAINE 5% 1 EA PATCH TD SCH (12:33)
[2016-09-20] MEDS: WARFARIN SODIUM 4 MG TAB PO SCH (16:41)
[2016-09-20] MEDS ORDERED: PATCH REMOVAL 1 EA PATCH TD SCH (21:00)
[2016-09-21] MEDS: ACETAMINOPHEN 325 MG TAB PO PRN ×2 (04:53→10:50)
[2016-09-21] MEDS: LEVOTHYROXINE 88 MCG TAB PO SCH (04:53)
[2016-09-21 08:14] VITALS: BP 147/68; PULSE 71; RESP 16; TEMP 98.1; O2SAT 91
[2016-09-21] MEDS: SENNOSIDES/DOCUSATE SODIUM TAB PO SCH (08:46)
[2016-09-21] MEDS: CYANO/VITAMIN B12 1000 MCG TAB PO SCH (08:47)
[2016-09-21] MEDS: IRBESARTAN 150 MG TAB PO SCH (08:47)
[2016-09-21] MEDS: MULTIVITAMINS 1 EACH TAB PO SCH (08:47)
[2016-09-21] MEDS: GABAPENTIN 300 MG CAP PO SCH (08:47)
[2016-09-21] MEDS: LIDOCAINE 5% 1 EA PATCH TD SCH (08:48)
[2016-09-21] MEDS: METHOCARBAMOL 750 MG TAB PO PRN (09:26)
[2016-09-21] MEDS: BECLOMETHASONE QVAR 80 MDI IH SCH (09:27)
--- NOTE | 2016-09-21 09:57 | PDIAF ---
- Diagnosis Diagnosis: severe pelvic and buttock pain, dehydration Code Status: Full Code - Medication Management Discharge Medications: Medications to Continue on Transfer Beclomethasone Dipropionate [Qvar] 2 puffs IH DAILY 09/17/16 [Last Taken Unknown ] Cyanocobalamin [Vitamin B12 (*)] 1,000 mcg PO DAILY 09/17/16 [Last Taken Unknown ] Herbals/Supplements -Info Only 1 ea PO DAILY 09/17/16 [Last Taken Unknown] Irbesartan 150 mg PO DAILY 09/17/16 [Last Taken 09/17/16] Multivitamins [Multivitamin (*)] 1 each PO DAILY 09/17/16 [Last Taken Unknown] Warfarin Sodium [Coumadin 1MG (*)] 1 mg PO EVERY OTHER DAY 09/17/16 [Last Taken 09/16/16] Warfarin Sodium [Coumadin 4MG (*)] 4 mg PO DAILY16 09/17/16 [Last Taken 09/17/16 ] Zolpidem Tartrate [Ambien 10 mg] 5 mg PO HS PRN 09/17/16 [Last Taken Unknown] metroNIDAZOLE [Metronidazole] 1 applic TP DAILY 09/17/16 [Last Taken 09/17/16] Acetaminophen [Tylenol 325mg (*)] 650 mg PO Q4HRS PRN #0 tab 09/21/16 [Last Taken Unknown] Diclofenac Sodium [Voltaren Gel (*)] 1 colton TP BID #1 tube 09/21/16 [Last Taken Unknown] Gabapentin [Neurontin 300 MG (*)] 300 mg PO TID #90 cap 09/21/16 [Last Taken Unknown] Levothyroxine [Synthroid 88 mcg (*)] 88 mcg PO DAILY06 #30 tab 09/21/16 [Last Taken Unknown] Lidocaine 5% [Lidoderm 5% Patch (*)] 1 ea TD DAILY #30 patch 09/21/16 [Last Taken Unknown] Methocarbamol [Robaxin 750 mg (*)] 750 mg PO Q4 PRN #60 tab 09/21/16 [Last Taken Unknown] Polyethylene Glycol 3350 [Miralax 17 gm (*)] 17 gm PO DAILY PRN #0 pkt 09/21/16 [Last Taken Unknown] oxyCODONE IR [Oxycodone Ir (*)] 2.5 mg PO Q4HRS PRN #30 tab 09/21/16 [Last Taken Unknown] Discharge Medications: Refer to the Discharge Home Medication list for PRN reason. - Orders Services needed: Home Care, Registered Nurse, Physical Therapy, Occupational Therapy Home Care Face to Face: I certify that this patient was under my care and that I had the required [id number] encounter meeting the encounter requirements on the discharge day. My findings support the fact that the patient is homebound as defined in CMS Chapter 7 Medicare Benefits Manual 30.1.1, The condition of the patient is such that there exists a normal inability to leave home and consequently, leaving home would require a considerable and taxing effort. Diet Recommendation: no restrictions on diet Diet Texture: Regular Texture Diet - Follow Up Care Current Providers and Referrals: AVRIL JAIN [Primary Care Provider] - As per Instructions
--- NOTE | 2016-09-21 10:16 | GDS ---
[f rep st] DISCHARGE SUMMARY DIAGNOSES: 1. Pelvic/buttock pain likely related to partial tear of the left adductor muscle group and tendini tis of the right gluteal intermedius muscle. 2. Recent hemorrhoid surgery. 3. Neck pain and headache, chronic. 4. History of DVT on chronic warfarin. 5. Chronic kidney disease at baseline. 6. Elevated TSH on admission. Synthroid increased from 75-88 mcg daily. Will need followup labs. PROCEDURES DONE: 1. Abdominal CT scan. Diverticulosis of the sigmoid colon. No evidence for diverticulitis or absc ess, mild constipation. 2. Head CT: Nothing acute. 3. Cervical spine MRI. Mild multilevel degenerative disease. Probable benign lesion C6. Please s ee report. 4. Pelvis MRI: No sacral or coccygeal fracture or bone lesion. Minimal partial tear of left adduc tor muscle near the origin on the pubic bone. Minimal tendinopathy of the right gluteus intermedius muscle near the insertion on the greater trochanteric and minimal hamstring tendinopathy. 5. Hip and lumbar spine x-ray. No acute abnormality noted. HOSPITAL COURSE: The patient is an 80-year-old woman who was admitted with severe fatigue, dehydrat ion, and pelvic and buttock pain. She describes symptoms for the last month following a hemorrhoid cauterization followed by a sigmoidoscope on 09/09/2016. She had the above evaluation and was treat ed symptomatically with pain medications. Unfortunately is a little bit limited by her chronic miriam l insufficiency and her use of warfarin. She did improve over the course of her hospitalization wit h the addition of gabapentin, Oxy IR, and Lidoderm patches. We will also try Voltaren gel as an out patient. She was ambulating with the assistance of a walker and much more mobile with improved pain control at the time of discharge. I did review her MRI scan with a physician food and beverage assistant manager for Dr. Robel feliz who felt that the MRI findings were consistent with her symptoms and can cause a lot of disco mfort. We continued to treat symptomatically and will continue followup as an outpatient. She will go home with home care and home physical therapy. I told her to make an appointment with Orthopedi cs as an outpatient. If her right hip starts to hurt more, she could potentially get a trochanteric injection which may help her symptoms. Other medical issues during her hospitalization include hyp othyroidism. Her TSH was low on her usual 75 mcg dose so it was increased to 88 mcg daily, and she needs a followup TSH in several weeks. The rest of her medical issues remained stable. CONDITION ON DISCHARGE: Good. PHYSICAL EXAMINATION: VITAL SIGNS: Stable. GENERAL APPEARANCE: She is alert and oriented. She i s ambulating and is much improved from admission. She continues to have pain on her buttock area pr imarily. DISCHARGE MEDICATIONS: Please see discharge medication form for full details. Additional medicatio ns include gabapentin, Oxy IR, Voltaren gel, Lidoderm patches, and Robaxin as needed. FOLLOWUP INSTRUCTIONS: She should schedule followup with Orthopedic surgery to review her symptoms and MRI findings. We will give her a CT scan of her imaging at the time of discharge. She also nee ds to follow up with her primary care provider, Dr. Devante Cisneros, and get an INR rechecked this week because of the new medication she is on to check for interactions. She will also need a followup T SH checked in several weeks to make sure she is on the right dose. Total time spent with patient and family on day of discharge and coordination of care was 40 minutes . /[id number]/MODL
[2016-09-21] MEDS: oxyCODONE IR 5 MG TAB PO PRN (11:46)
[2016-09-21] MEDS ORDERED: WARFARIN SODIUM 1 MG TAB PO SCH (14:00)
== END 2016-09-21 12:15 | disposition home health service (06) | DRG 558 ==
LOC: OBSVTOIN 16:24 → F3N 16:27
PROVIDERS: ADMIT Internal Medicine; ATTEND Internal Medicine
DX: M76.01 Gluteal tendinitis, right hip (principal); S39.093A Other injury of muscle, fascia and tendon of pelvis, initial encounter; R53.83 Other fatigue; M54.2 Cervicalgia; R51 Headache; N18.9 Chronic kidney disease, unspecified; E03.9 Hypothyroidism, unspecified; Z86.718 Personal history of other venous thrombosis and embolism; Z79.01 Long term (current) use of anticoagulants
CPT/HCPCS: 96374; 97161-GP; 97165-GO; 97535-GO; G8978-GP-CI; G8979-GP-CI; G8987-GO-CI; G8988-GO-CI; G8989-GO-CI; J2060; J2405; J3010; Q9967

== ENCOUNTER 2016-11-01 11:30 | Inpatient (IN) | payer OTHER ==
[2016-11-01 12:19] LABS: COLOR PALE YELLOW; LEUKOCYTE ESTERASE,URINE NEGATIVE (NEGATIVE); NITRITE,URINE NEGATIVE (NEGATIVE)
[2016-11-01] MEDS ORDERED: NS 1,000 ML IV ONE (12:25)
[2016-11-01 12:30] LABS: BACTERIA TRACE /hpf (NONE SEEN)
[2016-11-01 12:48] LABS: % IMMATURE GRANULYOCYTES 0.4 % (0.0-1.1); ABSOLUTE IMMATURE GRANULOCYTES 0.03 10^3/uL (0.00-0.10); ADD DIFF? NO; ADD MORPH? NO; ADD SCAN? NO; ATYPICAL LYMPHOCYTE FLAG 20 (0-99); FRAGMENT RBC FLAG 0 (0-99); HEMATOCRIT 35.7 % (38.0-47.0); HEMOGLOBIN 12.1 g/dL (12.6-16.3); LEFT SHIFT FLG 10 (0-99); LIPEMIA HEMOLYSIS FLAG 90 (0-99); MEAN CELL HEMOGLOBIN 32.7 pg (27.9-34.1); MEAN CELL HEMOGLOBIN CONCENTR. 33.9 g/dL (32.4-36.7); MEAN CELL VOLUME 96.5 fL (81.5-99.8); MEAN PLATELET VOLUME 9.2 fL (8.7-11.7); PLATELET CLUMPS FLAG 0 (0-99); PLATELET COUNT 151 10^3/uL (150-400); RED CELL DISTRIBUTION WIDTH 13.3 % (11.5-15.2)
--- NOTE | 2016-11-01 12:51 | EDPHY ---
H & P Stated Complaint: Groin pain radiating to back. Time Seen by Provider: 11/01/16 12:50 HPI/ROS: CHIEF COMPLAINT: Acute exacerbation of chronic pelvic and back pain HISTORY OF PRESENT ILLNESS: The patient presents to the ED with an acute exacerbation of chronic left gluteal in low back pain following work with her physical therapist last week. The patient denies any acute numbness or weakness. The patient has been taking oxycodone, gabapentin and Tylenol at home. The patient is chronically anticoagulated for lower extremity DVTs. The patient has no complaints of dysuria, cough or congestion. The patient has had some symptoms of constipation which she is using MiraLax and Senokot for. The patient reports her pain is currently an 8/10. The patient was able to sleep last night secondary to pain. REVIEW OF SYSTEMS: A comprehensive 10 point review of systems is otherwise negative aside from elements mentioned in the history of present illness. Source: Patient Exam Limitations: No limitations - Personal History Current Tetanus/Diphtheria Vaccine: Yes Current Tetanus Diphtheria and Acellular Pertussis (TDAP): Yes - Medical/Surgical History Hx Asthma: Yes Hx Chronic Respiratory Disease: No Hx Diabetes: No Hx Cardiac Disease: No Hx Renal Disease: No Hx Cirrhosis: No Hx Alcoholism: No Hx HIV/AIDS: No Hx Splenectomy or Spleen Trauma: No Other PMH: 1. Asthma. 2. Cholecystectomy. 3. Hypothyroidism. 4. DVTs. 5. Tonsillectomy. 6. Hysterectomy. 7. Bilateral tubal ligation. 8. Chronic renal insufficiency. I reviewed the patient's past medical notes. - Social History Smoking Status: Never smoked - Physical Exam Exam: General Appearance: Alert, no distress Eyes: Pupils equal and round no pallor or injection ENT, Mouth: Mucous membranes moist Respiratory: There are no retractions, lungs are clear to auscultation Cardiovascular: Regular rate and rhythm Gastrointestinal: Abdomen is soft and nontender, no masses, bowel sounds normal Neurological: A&O, normal motor function, normal sensory exam, normal cranial nerves Skin: Warm and dry, no rashes Musculoskeletal: Tenderness to palpation throughout the left gluteal area, tenderness to palpation in the left lumbar spine Extremities: symmetrical, full range of motion Constitutional: Initial Vital Signs Temperature (C) 36.6 C 11/01/16 11:33 Heart Rate 71 11/01/16 11:33 Respiratory Rate 16 11/01/16 11:33 Blood Pressure 169/103 H 11/01/16 11:33 O2 Delivery Mode Room Air Allergies/Adverse Reactions: codeine [Codeine] Allergy (Mild, Verified 09/17/16 11:13) NAUSEA Home Medications: Medication Instructions Recorded Cyanocobalamin [Vitamin B12 (*)] 1,000 mcg PO DAILY 09/17/16 Herbals/Supplements -Info Only 1 ea PO DAILY 09/17/16 Irbesartan 150 mg PO DAILY 09/17/16 Zolpidem Tartrate [Ambien 10 mg] 3.3333 - 5 mg PO HS PRN 09/17/16 Acetaminophen [Tylenol 325mg (*)] 650 mg PO Q4HRS PRN #0 tab 09/21/16 Diclofenac Sodium 1% [Voltaren Gel 1 colton TP BID #1 tube 09/21/16 (*)] Beclomethasone Qvar 80 [Qvar 80 2 puffs IH DAILY 11/01/16 (*)] Gabapentin [Neurontin 300 MG (*)] 300 mg PO HS@20 11/01/16 Levothyroxine [Synthroid 88 mcg 88 mcg PO DAILY@04 11/01/16 (*)] Polyethylene Glycol 3350 [Miralax 8.5 gm PO BID PRN 11/01/16 17 gm (*)] Sennosides/Docusate Sodium 1 each PO BID 11/01/16 [Senokot-S (OTC)] Warfarin Sodium [Coumadin 1MG (*)] 1 mg PO SUTUTHSA@16 11/01/16 Warfarin Sodium [Coumadin 4MG (*)] 4 mg PO DAILY16 11/01/16 oxyCODONE IR [Oxycodone Ir (*)] 2.5 mg PO QID@10,14,18,22 PRN 11/01/16 Medical Decision Making - Diagnostics Imaging Results: Imaging Impressions Lumbar Spine X-Ray 11/01/16 14:36 Impression: Nothing acute identified. ED Course/Re-evaluation: The patient presents to the ED with recurrent left gluteal low back pain. The patient was taken for an x-ray which demonstrates no evidence of an acute compression fracture. The patient did receive an IV lidocaine infusion which initially resulted in improvement of her pain however shortly after discontinuing the medication her pain returned. The patient received additional IV narcotics. The patient continues to have severe on manage pain in currently is on a number of outpatient oral antibiotics, gabapentin and Tylenol. Unfortunately at this point time the patient will require readmission to the hospital for ongoing pain management in to reassess recurrent outpatient therapy and home situation. She may require placement into a jail facility further rehabilitation. The patient was noted to be afebrile and neurologically intact in the emergency department. She has no evidence of an acute neurosurgical emergency. Differential Diagnosis: Differential diagnosis considered includes lumbar fracture, myofascial strain, recurrent soft tissue injury, lumbar disc herniation - Data Points Laboratory Results: Laboratory Results 11/01/16 12:20 11/01/16 12:20 11/01/16 11/01/16 11/01/16 12:20 12:20 12:20 WBC 7.77 10^3/uL 10^3/uL (3.80-9.50) RBC 3.70 10^6/uL L 10^6/uL (4.18-5.33) Hgb 12.1 g/dL L g/dL (12.6-16.3) Hct 35.7 % L % (38.0-47.0) MCV 96.5 fL fL (81.5-99.8) MCH 32.7 pg pg (27.9-34.1) MCHC 33.9 g/dL g/dL (32.4-36.7) RDW 13.3 % % (11.5-15.2) Plt Count 151 10^3/uL 10^3/uL (150-400) MPV 9.2 fL fL (8.7-11.7) Neut % (Auto) 69.6 % % (39.3-74.2) Lymph % (Auto) 23.9 % % (15.0-45.0) [place] % (Auto) 5.7 % % (4.5-13.0) Eos % (Auto) 0.3 % L % (0.6-7.6) Baso % (Auto) 0.1 % L % (0.3-1.7) Nucleat RBC Rel Count 0.0 % % (0.0-0.2) Absolute Neuts (auto) 5.41 10^3/uL 10^3/uL (1.70-6.50) Absolute Lymphs (auto) 1.86 10^3/uL 10^3/uL (1.00-3.00) Absolute Monos (auto) 0.44 10^3/uL 10^3/uL (0.30-0.80) Absolute Eos (auto) 0.02 10^3/uL L 10^3/uL (0.03-0.40) Absolute Basos (auto) 0.01 10^3/uL L 10^3/uL (0.02-0.10) Absolute Nucleated RBC 0.00 10^3/uL 10^3/uL (0-0.01) Immature Gran % 0.4 % % (0.0-1.1) Immature Gran # 0.03 10^3/uL 10^3/uL (0.00-0.10) PT 35.5 SEC H SEC (12.0-15.0) INR 3.48 H (0.83-1.16) Sodium 135 mEq/L mEq/L (134-144) Potassium 5.2 mEq/L mEq/L (3.5-5.2) Chloride 100 mEq/L mEq/L (97-110) Carbon Dioxide 25 mEq/l mEq/l (22-31) Anion Gap 10 mEq/L mEq/L (8-16) BUN 33 mg/dL H mg/dL (7-23) Creatinine 1.4 mg/dL H mg/dL (0.6-1.0) Estimated GFR 36 Glucose 103 mg/dL H mg/dL (70-100) Calcium 10.5 mg/dL H mg/dL (8.5-10.4) Urine Color Urine Appearance Urine pH Ur Specific [place] Urine Protein Urine Ketones Urine Blood Urine Nitrate Urine Bilirubin Urine Urobilinogen Ur Leukocyte Esterase Urine RBC Urine WBC Ur Epithelial Cells Urine Bacteria Urine Glucose 11/01/16 11:55 WBC RBC Hgb Hct MCV MCH MCHC RDW Plt Count MPV Neut % (Auto) Lymph % (Auto) [place] % (Auto) Eos % (Auto) Baso % (Auto) Nucleat RBC Rel Count Absolute Neuts (auto) Absolute Lymphs (auto) Absolute Monos (auto) Absolute Eos (auto) Absolute Basos (auto) Absolute Nucleated RBC Immature Gran % Immature Gran # PT INR Sodium Potassium Chloride Carbon Dioxide Anion Gap BUN Creatinine Estimated GFR Glucose Calcium Urine Color PALE YELLOW Urine Appearance CLEAR Urine pH 7.0 (5.0-7.5) Ur Specific [place] 1.004 (1.002-1.030) Urine Protein 1+ H (NEGATIVE) Urine Ketones NEGATIVE (NEGATIVE) Urine Blood 2+ H (NEGATIVE) Urine Nitrate NEGATIVE (NEGATIVE) Urine Bilirubin NEGATIVE (NEGATIVE) Urine Urobilinogen NEGATIVE EU EU (0.2-1.0) Ur Leukocyte Esterase NEGATIVE (NEGATIVE) Urine RBC 5-10 /hpf H /hpf (0-3) Urine WBC 1-3 /hpf /hpf (0-3) Ur Epithelial Cells NONE SEEN /lpf /lpf (NONE-1+) Urine Bacteria TRACE /hpf H /hpf (NONE SEEN) Urine Glucose NEGATIVE (NEGATIVE) Medications Given: Discontinued Medications Sodium Chloride (Ns) 1,000 mls @ 0 mls/hr IV ONCE ONE PRN Reason: Wide Open Stop: 11/01/16 12:26 Last Admin: 11/01/16 12:25 Dose: 1,000 mls Lidocaine HCl 150 mg/ Sodium (Chloride) 115 mls @ 600 mls/hr IV EDNOW ONE Stop: 11/01/16 13:24 Last Admin: 11/01/16 13:32 Dose: 115 mls Departure - Departure Disposition: [place] [facility] Inpatient Acute Clinical Impression: Muscle strain of left gluteal region Qualifiers: Encounter type: initial encounter Qualified Code(s): S76.012A - Strain of muscle, fascia and tendon of left hip, initial encounter Low back pain Qualifiers: Chronicity: acute Back pain laterality: midline Sciatica presence: without sciatica Qualified Code(s): M54.5 - Low back pain Condition: Good
[2016-11-01 12:55] LABS: ANION GAP 10 mEq/L (8-16); CALCIUM 10.5 mg/dL (8.5-10.4); CARBON DIOXIDE 25 mEq/l (22-31); CHLORIDE 100 mEq/L (97-110); CREATININE 1.4 mg/dL (0.6-1.0); GLOMERULAR FILTRATION RATE 36; GLUCOSE 103 mg/dL (70-100); POTASSIUM 5.2 mEq/L (3.5-5.2); SODIUM 135 mEq/L (134-144)
[2016-11-01] MEDS ORDERED: LIDOCAINE 1% 150 MG in NS 100 ML IV ONE (13:13)
[2016-11-01 13:29] LABS: INR 3.48 (0.83-1.16); PROTIME(PATIENT) 35.5 SEC (12.0-15.0)
[2016-11-01] MEDS ORDERED: PROMETHAZINE HCL 25 MG/ML INJ IVP PRN (16:18)
[2016-11-01] MEDS ORDERED: ONDANSETRON DISINTEGRATING 4 MG TAB PO PRN (16:18)
[2016-11-01] MEDS ORDERED: ONDANSETRON 4 MG/2 ML VIAL IVP PRN (16:18)
[2016-11-01] MEDS ORDERED: HYDROmorphONE/DILAUDID 1 MG/ML SYR IVP PRN (16:18)
[2016-11-01] MEDS ORDERED: NON-FORMULARY NEW DRUG (Zolpidem Tartrate [Ambien 10 Mg] 0 MG) PO PRN (16:23)
--- NOTE | 2016-11-01 16:30 | PDGENHP ---
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 She improved in terms of her pain initially, and went home with home health/home PT. She states she had about 10 good days, but then home PT came to an end and she began to see an outside PT group and her pain both increased and changed. She notes that the first problem came after she underwent a needling procedure with concurrent shocks. This increased her pain so she went to a different PT who attempted to align her hips and after that the pain became much more severe. It seemed to affect primarily her bilateral posterior upper femurs, her bilateral inner thighs and her lower mid back. She also then developed some pain down her bilateral legs. She has been on gabapentin which seemed to help initially, but the dose was decreased both because of her kidney function and because she was having visual complaints that seemed to be related to the neurontin. She believes the pain now is worse than it was originally. She thinks that walking seems to help, but lying or sitting makes the pain severe and she has not been able to sleep well. She has associated increased urinary frequency and has had a couple of bouts of urinary incontinence. She does not have any change in bowel habits, but takes a number of medications for constipation. Her last BM was today. She denies numbness or weakness. History Information - Allergies/Home Medication List Allergies/Adverse Reactions: codeine [Codeine] Allergy (Mild, Verified 09/17/16 11:13) NAUSEA Home Medications: Cyanocobalamin [Vitamin B12 (*)] 1,000 mcg PO DAILY 09/17/16 [Last Taken Unknown ] Herbals/Supplements -Info Only 1 ea PO DAILY 09/17/16 [Last Taken Unknown] Irbesartan 150 mg PO DAILY 09/17/16 [Last Taken 11/01/16] Zolpidem Tartrate [Ambien 10 mg] 3.3333 - 5 mg PO HS PRN 09/17/16 [Last Taken Unknown] Beclomethasone Qvar 80 [Qvar 80 (*)] 2 puffs IH DAILY 11/01/16 [Last Taken Unknown] Gabapentin [Neurontin 300 MG (*)] 300 mg PO HS@20 11/01/16 [Last Taken Unknown] Levothyroxine [Synthroid 88 mcg (*)] 88 mcg PO DAILY@04 11/01/16 [Last Taken ] Polyethylene Glycol 3350 [Miralax 17 gm (*)] 8.5 gm PO BID PRN 11/01/16 [Last Taken Unknown] Sennosides/Docusate Sodium [Senokot-S (OTC)] 1 each PO BID 11/01/16 [Last Taken Unknown] Warfarin Sodium [Coumadin 1MG (*)] 1 mg PO SUTUTHSA@16 11/01/16 [Last Taken ] Warfarin Sodium [Coumadin 4MG (*)] 4 mg PO DAILY16 11/01/16 [Last Taken 10/31/16 ] oxyCODONE IR [Oxycodone Ir (*)] 2.5 mg PO QID@10,14,18,22 PRN 11/01/16 [Last Taken Unknown] I have personally reviewed and updated: family history, medical history, social history, surgical history - Past Medical History asthma, COPD, DVT (recurrent on chronic AC), hypertension Additional medical history: CKD baseline 1.4. polio as a child. malaria many years ago. hypothyroid - Surgical History Reports: cholecystectomy, hysterectomy Additional surgical history: bilateral tubal ligation. tonsillectomy - Family History Positive for: cancer (father with prostate cancer, mother with ovarian cancer) - Social History Smoking Status: Never smoked Alcohol Use: None Drug Use: None Additional social history: , 3 children Review of Systems ROS: 10pt was reviewed & negative except for what was stated in HPI & below Physical Exam Temp Pulse Resp BP Pulse Ox 36.4 C 72 12 155/59 H 93 11/01/16 16:04 11/01/16 16:04 11/01/16 16:04 11/01/16 16:04 11/01/16 16:04 Constitutional: appears nourished, uncomfortable Eyes: anicteric sclera, No PERRL (right eye cloudy cw cataract) Ears, Nose, Mouth, Throat: moist mucous membranes Cardiovascular: regular rate and rhythym, no murmur, rub, or gallop, No edema Respiratory: no respiratory distress, no rales or rhonchi, clear to auscultation Gastrointestinal: normoactive bowel sounds, soft, non-tender abdomen Skin: warm, normal color Musculoskeletal: full muscle strength, no muscle tenderness Neurologic: AAOx3, sensation intact bilaterally, CN II-XII Intact, No weakness, No numbness Lab Data & Imaging Review 11/01/16 12:20 11/01/16 12:20 WBC 7.77 10^3/uL (3.80-9.50) 11/01/16 12:20 RBC 3.70 10^6/uL (4.18-5.33) L 11/01/16 12:20 Hgb 12.1 g/dL (12.6-16.3) L 11/01/16 12:20 Hct 35.7 % (38.0-47.0) L 11/01/16 12:20 MCV 96.5 fL (81.5-99.8) 11/01/16 12:20 MCH 32.7 pg (27.9-34.1) 11/01/16 12:20 MCHC 33.9 g/dL (32.4-36.7) 11/01/16 12:20 RDW 13.3 % (11.5-15.2) 11/01/16 12:20 Plt Count 151 10^3/uL (150-400) 11/01/16 12:20 MPV 9.2 fL (8.7-11.7) 11/01/16 12:20 Neut % (Auto) 69.6 % (39.3-74.2) 11/01/16 12:20 Lymph % (Auto) 23.9 % (15.0-45.0) 11/01/16 12:20 [place] % (Auto) 5.7 % (4.5-13.0) 11/01/16 12:20 Eos % (Auto) 0.3 % (0.6-7.6) L 11/01/16 12:20 Baso % (Auto) 0.1 % (0.3-1.7) L 11/01/16 12:20 Nucleat RBC Rel Count 0.0 % (0.0-0.2) 11/01/16 12:20 Absolute Neuts (auto) 5.41 10^3/uL (1.70-6.50) 11/01/16 12:20 Absolute Lymphs (auto) 1.86 10^3/uL (1.00-3.00) 11/01/16 12:20 Absolute Monos (auto) 0.44 10^3/uL (0.30-0.80) 11/01/16 12:20 Absolute Eos (auto) 0.02 10^3/uL (0.03-0.40) L 11/01/16 12:20 Absolute Basos (auto) 0.01 10^3/uL (0.02-0.10) L 11/01/16 12:20 Absolute Nucleated RBC 0.00 10^3/uL (0-0.01) 11/01/16 12:20 Immature Gran % 0.4 % (0.0-1.1) 11/01/16 12:20 Immature Gran # 0.03 10^3/uL (0.00-0.10) 11/01/16 12:20 PT 35.5 SEC (12.0-15.0) H 11/01/16 12:20 INR 3.48 (0.83-1.16) H 11/01/16 12:20 Sodium 135 mEq/L (134-144) 11/01/16 12:20 Potassium 5.2 mEq/L (3.5-5.2) 11/01/16 12:20 Chloride 100 mEq/L (97-110) 11/01/16 12:20 Carbon Dioxide 25 mEq/l (22-31) 11/01/16 12:20 Anion Gap 10 mEq/L (8-16) 11/01/16 12:20 BUN 33 mg/dL (7-23) H 11/01/16 12:20 Creatinine 1.4 mg/dL (0.6-1.0) H 11/01/16 12:20 Estimated GFR 36 11/01/16 12:20 Glucose 103 mg/dL (70-100) H 11/01/16 12:20 Calcium 10.5 mg/dL (8.5-10.4) H 11/01/16 12:20 Urine Color PALE YELLOW 11/01/16 11:55 Urine Appearance CLEAR 11/01/16 11:55 Urine pH 7.0 (5.0-7.5) 11/01/16 11:55 Ur Specific [place] 1.004 (1.002-1.030) 11/01/16 11:55 Urine Protein 1+ (NEGATIVE) H 11/01/16 11:55 Urine Ketones NEGATIVE (NEGATIVE) 11/01/16 11:55 Urine Blood 2+ (NEGATIVE) H 11/01/16 11:55 Urine Nitrate NEGATIVE (NEGATIVE) 11/01/16 11:55 Urine Bilirubin NEGATIVE (NEGATIVE) 11/01/16 11:55 Urine Urobilinogen NEGATIVE EU (0.2-1.0) 11/01/16 11:55 Ur Leukocyte Esterase NEGATIVE (NEGATIVE) 11/01/16 11:55 Urine RBC 5-10 /hpf (0-3) H 11/01/16 11:55 Urine WBC 1-3 /hpf (0-3) 11/01/16 11:55 Ur Epithelial Cells NONE SEEN /lpf (NONE-1+) 11/01/16 11:55 Urine Bacteria TRACE /hpf (NONE SEEN) H 11/01/16 11:55 Urine Glucose NEGATIVE (NEGATIVE) 11/01/16 11:55 Visualized and Interpreted imaging results: Yes Interpretation: lumbar spine Xray: no fracture, no acute findings Assessment & Plan Assessment: 80 yo F with hx of recurrent DVT, ckd, recent acute back/hip pain thought to be 2/2 tendonitis and partial adductor tear pw increased back pain # acute on chronic low back pain with radiculopathy: recent issues with same but now with significant progression of pain and new radiculopathy as well as urinary complaints. Exam with strength and sensation intact though exam limited by pain. Will obtain MRI lumbar spine and repeat MRI of the pelvis to eval for progression of gluteal tear vs lumbar stenosis. Will have pt/ot eval. Patient not tolerating gabapentin so will start on lyrica. Also says that oxycodone is not really helping, however patient on very low dose. Will add muscle relaxant as well. # urinary frequency/incontinence: UA not consistent with infection, MRI to eval lumbar spine as above. # recurrent DVT: on chronic AC for many years, followed by Dr. Salmeron. INR supratherapeutic today, will have pharmacy adjust # ckd: at baseline, renally dose meds, avoid nephrotoxins # copd vs RAD: without e/o acute exacerbation, continue outpatient inhalers # hypothyroid: continue synthroid # htn: continue irbesartan, BP mildly elevated since arrival in ER however patient also in acute pain # IP status, will require IV opiates/high risk medication and is unsafe to remain at home given severe pain and difficulty transferring from sitting to standing Patient new to my care. Old records reviewed and summarized as above. Care plan reviewed with ER doc. Further hx obtained from patients present at bedside.
[2016-11-01] MEDS: oxyCODONE IR 5 MG TAB PO PRN ×2 (17:16→23:06)
[2016-11-01] MEDS ORDERED: oxyCODONE IR 5 MG TAB PO PRN (18:00)
[2016-11-01] MEDS: PREGABALIN 75 MG CAP PO SCH (20:39)
[2016-11-01] MEDS: SENNOSIDES/DOCUSATE SODIUM TAB PO SCH (20:41)
[2016-11-01] MEDS: ACETAMINOPHEN 325 MG TAB PO PRN (20:42)
[2016-11-01] MEDS: ZOLPIDEM TARTRATE 5 MG TAB PO PRN (20:47)
[2016-11-01] MEDS: DICLOFENAC SODIUM 1% 100 GM GEL TP SCH (20:48)
[2016-11-02] MEDS: oxyCODONE IR 5 MG TAB PO PRN ×4 (00:45→18:37)
[2016-11-02] MEDS: LEVOTHYROXINE 88 MCG TAB PO SCH (04:31)
[2016-11-02 05:02] LABS: % IMMATURE GRANULYOCYTES 0.6 % (0.0-1.1); ABSOLUTE IMMATURE GRANULOCYTES 0.04 10^3/uL (0.00-0.10); ABSOLUTE NRBC COUNT 0.02 10^3/uL (0-0.01); ADD DIFF? NO; ADD MORPH? NO; ADD SCAN? NO; ATYPICAL LYMPHOCYTE FLAG 0 (0-99); FRAGMENT RBC FLAG 0 (0-99); HEMATOCRIT 35.4 % (38.0-47.0); HEMOGLOBIN 11.7 g/dL (12.6-16.3); LEFT SHIFT FLG 10 (0-99); LIPEMIA HEMOLYSIS FLAG 80 (0-99); MEAN CELL HEMOGLOBIN 32.9 pg (27.9-34.1); MEAN CELL HEMOGLOBIN CONCENTR. 33.1 g/dL (32.4-36.7); MEAN CELL VOLUME 99.4 fL (81.5-99.8); MEAN PLATELET VOLUME 9.1 fL (8.7-11.7); NRBC-AUTO% 0.3 % (0.0-0.2); PLATELET CLUMPS FLAG 10 (0-99); PLATELET COUNT 150 10^3/uL (150-400); RED BLOOD CELL COUNT 3.56 10^6/uL (4.18-5.33); RED CELL DISTRIBUTION WIDTH 13.6 % (11.5-15.2)
[2016-11-02 05:08] LABS: INR 3.01 (0.83-1.16); PROTIME(PATIENT) 31.6 SEC (12.0-15.0)
[2016-11-02 05:17] LABS: ANION GAP 9 mEq/L (8-16); CALCIUM 10.3 mg/dL (8.5-10.4); CARBON DIOXIDE 22 mEq/l (22-31); CHLORIDE 106 mEq/L (97-110); CREATININE 1.5 mg/dL (0.6-1.0); GLOMERULAR FILTRATION RATE 33; GLUCOSE 82 mg/dL (70-100); POTASSIUM 4.9 mEq/L (3.5-5.2); SODIUM 137 mEq/L (134-144)
[2016-11-02] MEDS: BECLOMETHASONE QVAR 80 MDI IH SCH (07:59)
[2016-11-02] MEDS: IRBESARTAN 150 MG TAB PO SCH (08:53)
[2016-11-02] MEDS: PREGABALIN 75 MG CAP PO SCH ×2 (08:53→20:56)
[2016-11-02] MEDS: CYANO/VITAMIN B12 1000 MCG TAB PO SCH (08:53)
[2016-11-02] MEDS ORDERED: ACETAMINOPHEN 325 MG TAB PO PRN (08:54)
[2016-11-02] MEDS: SENNOSIDES/DOCUSATE SODIUM TAB PO SCH ×2 (08:54→20:56)
[2016-11-02] MEDS: DICLOFENAC SODIUM 1% 100 GM GEL TP SCH ×4 (08:57→21:18)
[2016-11-02] MEDS ORDERED: Herbals/Supplements -Info Only PO SCH (09:00)
[2016-11-02] MEDS ORDERED: DIAZEPAM 10 MG/2 ML SYR IVP ONE (10:29)
[2016-11-02] MEDS: POLYETHYLENE GLYCOL 3350 17 GM PKT PO PRN (12:53)
--- NOTE | 2016-11-02 13:27 | HOSPPROG ---
Hospitalist Progress Note Assessment/Plan: 80 yo F with hx of recurrent DVT, ckd, recent acute back/hip pain thought to be 2/2 tendonitis and partial adductor tear pw increased back pain First encounter, chart reviewed. # acute on chronic low back pain with radiculopathy: recent issues with same but now with significant progression of pain and new radiculopathy as well as urinary complaints. MRI lumbar spine stable with no cause for pain MRI of the pelvis pending, consider flexion/ext spine xray if mri negative pt/ot eval. Patient not tolerating gabapentin so will start on lyrica. Also says that oxycodone not really helping, however patient on very low dose. wants to get off oxy, causing constipation Will add muscle relaxant as well. # urinary frequency/incontinence: UA not consistent with infection, MRI no etiol # recurrent DVT: on chronic AC for many years, followed by Dr. Salmeron. INR supratherapeutic today, will have pharmacy adjust requesting 4mg today # ckd: at baseline, renally dose meds, avoid nephrotoxins # copd vs RAD: without e/o acute exacerbation, continue outpatient inhalers # hypothyroid: continue synthroid # htn: continue irbesartan, BP mildly elevated since arrival in ER however patient also in acute pain # IP status, will require IV opiates/high risk medication and is unsafe to remain at home given severe pain and difficulty transferring from sitting to standing plan for DC home in the am with [facility] if stable Subjective: Still having significant pain. Feels tired. Objective: Vital Signs Temp Pulse Resp BP Pulse Ox 36.8 C 66 16 115/66 90 L 11/02/16 00:00 11/02/16 08:00 11/02/16 08:00 11/02/16 08:00 11/02/16 08:00 Laboratory Results 11/02/16 04:43 11/02/16 04:43 11/01/16 11/02/16 11/03/16 05:59 05:59 05:59 Intake Total 436 Balance 436 PT 31.6 SEC (12.0-15.0) H 11/02/16 04:43 INR 3.01 (0.83-1.16) H 11/02/16 04:43 - Physical Exam Constitutional: no apparent distress, appears nourished, uncomfortable Eyes: anicteric sclera, EOMI, other Ears, Nose, Mouth, Throat: moist mucous membranes, hearing normal, ears appear normal Cardiovascular: regular rate and rhythym, No JVD, No edema Respiratory: no respiratory distress, no rales or rhonchi, reduced air movement Gastrointestinal: No tenderness, No ascites, No guarding Skin: warm, normal color, No erythema Musculoskeletal: pain with ROM, muscular tenderness, abnormal gait, generalized weakness Neurologic: AAOx3 Psychiatric: not anxious, not encephalopathic, thought process linear ICD10 Worksheet Patient Problems: Problems Problem Status Onset Abdominal pain Acute Hemoperitoneum Acute C. difficile diarrhea Acute Low back pain Acute Weakness Acute Muscle strain of left gluteal region Acute Low back pain Acute
[2016-11-02] MEDS: ACETAMINOPHEN 325 MG TAB PO PRN (13:56)
[2016-11-02] MEDS ORDERED: LIDOCAINE 5% 1 EA PATCH TD SCH (14:45)
[2016-11-02] MEDS: METHOCARBAMOL 750 MG TAB PO SCH ×2 (15:13→20:56)
[2016-11-02] MEDS: LIDOCAINE 5% 1 EA PATCH TD SCH (15:40)
[2016-11-02] MEDS ORDERED: WARFARIN SODIUM 4 MG TAB PO SCH (16:00)
[2016-11-02] MEDS ORDERED: WARFARIN SODIUM 1 MG TAB PO SCH (16:00)
[2016-11-02] MEDS ORDERED: PATCH REMOVAL 1 EA PATCH TD SCH (21:00)
[2016-11-02] MEDS: ZOLPIDEM TARTRATE 5 MG TAB PO PRN (21:36)
[2016-11-03 05:07] VITALS: TEMP 97.7
[2016-11-03] MEDS: LEVOTHYROXINE 88 MCG TAB PO SCH (05:08)
[2016-11-03 05:35] LABS: INR 3.03 (0.83-1.16); PROTIME(PATIENT) 31.8 SEC (12.0-15.0)
[2016-11-03 08:21] VITALS: BP 128/62
--- NOTE | 2016-11-03 08:40 | HOSPPROG ---
Hospitalist Progress Note Assessment/Plan: Ms Stone is an 89 y/o femal who presented to the ER with acute back/hip pain. Today is my first encounter with the patient, chart reviewed. # acute on chronic low back pain with radiculopathy: she can walk, but has diff sitting reviewed both MRI MRI of the pelvis shows mild tendopathy of gluteus minimus tendon as well as mild partial tear of the adductor tendon on the right pt/ot eval. better w Sallie spoke w orthopedics/ they will see her in their office for f/u care #constipation resolved # urinary frequency/incontinence: UA not consistent with infection, MRI no etiol # recurrent DVT: -sees Dr Salmeron in the OP setting -INR therapeutic/ high end of normala -4 mg given yesterday # ckd: -recent creaeat is 1.5 # copd vs RAD: without e/o acute exacerbation, continue outpatient inhalers # hypothyroid: continue synthroid # htn: continue irbesartan # Plan: dc home/ further f/u with ortho this weei Subjective: Irene is having ongoing pain/adrianne in the left buttock area. Objective: Vital Signs Temp Pulse Resp BP Pulse Ox 36.5 C 61 14 128/62 H 91 L 11/03/16 08:18 11/03/16 08:18 11/03/16 08:18 11/03/16 08:18 11/03/16 08:18 Laboratory Results 11/02/16 04:43 11/02/16 04:43 11/02/16 11/03/16 11/04/16 05:59 05:59 05:59 Intake Total 436 1250 Balance 436 1250 PT 31.8 SEC (12.0-15.0) H 11/03/16 05:20 INR 3.03 (0.83-1.16) H 11/03/16 05:20 - Physical Exam Constitutional: uncomfortable Eyes: PERRL Ears, Nose, Mouth, Throat: hearing normal Respiratory: no respiratory distress Skin: warm, normal color Musculoskeletal: muscular tenderness, generalized weakness Neurologic: AAOx3 Psychiatric: interacting appropriately, not anxious ICD10 Worksheet Patient Problems: Problems Problem Status Onset Low back pain Acute Muscle strain of left gluteal region Acute Abdominal pain Acute C. difficile diarrhea Acute Hemoperitoneum Acute Low back pain Acute Weakness Acute
[2016-11-03] MEDS: DICLOFENAC SODIUM 1% 100 GM GEL TP SCH (09:12)
[2016-11-03] MEDS: METHOCARBAMOL 750 MG TAB PO SCH (09:13)
[2016-11-03] MEDS: IRBESARTAN 150 MG TAB PO SCH (09:13)
[2016-11-03] MEDS: CYANO/VITAMIN B12 1000 MCG TAB PO SCH (09:13)
[2016-11-03] MEDS: PREGABALIN 75 MG CAP PO SCH (09:13)
[2016-11-03] MEDS: SENNOSIDES/DOCUSATE SODIUM TAB PO SCH (09:13)
[2016-11-03] MEDS: POLYETHYLENE GLYCOL 3350 17 GM PKT PO PRN (09:13)
[2016-11-03] MEDS: LIDOCAINE 5% 1 EA PATCH TD SCH (09:14)
[2016-11-03] MEDS: ACETAMINOPHEN 325 MG TAB PO PRN (09:24)
[2016-11-03] MEDS ORDERED: BISACODYL 10 MG SUPP PR PRN (09:52)
[2016-11-03] MEDS ORDERED: LACTULOSE 20 GM/30 ML UDCUP PO PRN (09:52)
[2016-11-03] MEDS ORDERED: POLYETHYLENE GLYCOL 3350 17 GM PKT PO SCH (10:00)
[2016-11-03] MEDS: BECLOMETHASONE QVAR 80 MDI IH SCH (10:55)
[2016-11-03 11:03] VITALS: PULSE 96; RESP 12; O2SAT 96
--- NOTE | 2016-11-03 12:23 | PDIAF ---
- Diagnosis Diagnosis: acute bilateral gluteal and radicular pain Code Status: Full Code - Medication Management Discharge Medications: Medications to Continue on Transfer Cyanocobalamin [Vitamin B12 (*)] 1,000 mcg PO DAILY 09/17/16 [Last Taken Unknown ] Herbals/Supplements -Info Only 1 ea PO DAILY 09/17/16 [Last Taken Unknown] Irbesartan 150 mg PO DAILY 09/17/16 [Last Taken 11/01/16] Zolpidem Tartrate [Ambien 10 mg] 3.3333 - 5 mg PO HS PRN 09/17/16 [Last Taken Unknown] Acetaminophen [Tylenol 325mg (*)] 650 mg PO Q4HRS PRN #0 tab 09/21/16 [Last Taken Unknown] Diclofenac Sodium 1% [Voltaren Gel (*)] 1 colton TP BID #1 tube 09/21/16 [Last Taken Unknown] Beclomethasone Qvar 80 [Qvar 80 (*)] 2 puffs IH DAILY 11/01/16 [Last Taken Unknown] Levothyroxine [Synthroid 88 mcg (*)] 88 mcg PO DAILY@04 11/01/16 [Last Taken ] Polyethylene Glycol 3350 [Miralax 17 gm (*)] 8.5 gm PO BID PRN 11/01/16 [Last Taken Unknown] Sennosides/Docusate Sodium [Senokot-S] 1 each PO BID 11/01/16 [Last Taken Unknown] Warfarin Sodium [Coumadin 1MG (*)] 1 mg PO SUTUTHSA@16 11/01/16 [Last Taken ] Warfarin Sodium [Coumadin 4MG (*)] 4 mg PO DAILY16 11/01/16 [Last Taken 10/31/16 ] Pregabalin [Lyrica 75mg (*)] 75 mg PO HS #30 cap 11/03/16 [Last Taken Unknown] Discharge Medications: Refer to the Discharge Home Medication list for PRN reason. - Orders Services needed: Home Care, Physical Therapy, Occupational Therapy Home Care Face to Face: I certify that this patient was under my care and that I had the required [id number] encounter meeting the encounter requirements on the discharge day. My findings support the fact that the patient is homebound as defined in CMS Chapter 7 Medicare Benefits Manual 30.1.1, The condition of the patient is such that there exists a normal inability to leave home and consequently, leaving home would require a considerable and taxing effort. Diet Recommendation: no restrictions on diet Diet Texture: Regular Texture Diet Activity/Weight Bearing Restrictions: as tolerated/ patient has tendinopathy in right gluteus minimus, partial tear of adductor tendon at insertion of syphysis pubis/ wbat - Labs/Radiology PT/INR Date: 11/04/16 (f/u willie Salmeron) - Follow Up Care Current Providers and Referrals: AVRIL JAIN [Primary Care Provider] - As per Instructions Tim Jones MD [Medical Doctor] - (Call to make appointment this week.He said he will see you .)
--- NOTE | 2016-11-03 15:48 | GDS ---
[f rep st] DISCHARGE SUMMARY DISCHARGE DIAGNOSES: 1. [id number] low back pain with radiculopathy. 2. Constipation. 3. Urinary frequency, incontinence. 4. Recurrent deep venous thrombosis. 5. Chronic kidney disease. 6. Chronic obstructive pulmonary disease versus reactive airway disease. 7. Hypothyroidism. 8. Hypertension. HISTORY OF PRESENT ILLNESS: Briefly, the patient is a very sweet 80-year-old woman who has had progressive injuries in regard to her low back and hips. She was recently hospitalized for hemorrhoidal bleed as well as lower back pain. She had an MRI at that time which showed minimal tendinopathy and minimal partial tear of her left adductor muscle group. She went home and had home care and did well. After being discharged from home care, she saw outpatient Physical Therapy, who she felt did not help her pain. Her main issue is that she has more pain with sitting than standing. She is able to mobilize quite well during her stay. She had a lumbar x-ray performed, which showed nothing acute. A lumbar spine MRI showed mild degenerative changes without any type of focal disk herniation, canal stenosis, or neural foraminal impingement. It showed normal appearance of the conus medullaris and filum terminale. A pelvis MRI was performed, which showed mild tendinopathy, gluteus minimus tendon insertion of right greater trochanter. She has a mild partial tear adductor tendon insertion of the symphysis pubis on the right, and improving injury of the left adductor tendon. I spoke with Dr. Tim Jones. The patient will come and see him this coming to review her films. He is recommending she use a cane. She has also gotten some relief with the Lyrica, except that it makes her drowsy. HOSPITAL COURSE PER PROBLEM: 1. [id number] low back pain. She is much better with the Lyrica. She will follow up with Orthopedics this week for followup care. 2. Constipation, resolved. 3. Urinary frequency and incontinence. This is resolved. 4. Recurrent DVT. She is on Coumadin. The patient has a monitor at home and is able to monitor herself closely. She will follow up with Dr. Salmeron. 5. Chronic kidney disease. Her most recent creatinine is 1.5. 6. COPD. She has no etiology of acute exacerbation. 7. Hypothyroidism, on Synthroid. 8. Hypertension, on irbesartan. PENDING LABORATORIES AND TESTS: None. CONDITION AT DISCHARGE: Stable. Blood pressure is 128/62, respiratory rate is 14, pulse is 61, temperature 36.5 Celsius, O2 sats on room air are 91%. MEDICATIONS AT DISCHARGE: Please see the EMR. DISCHARGE INSTRUCTIONS: 1. To follow up with Dr. Jones this week. 2. If she develops incontinence of urine or stool, to return to the emergency immediately. 3. To use ice 3 times a day. TIME SPENT: Greater than 30 minutes discharging and coordinating care. /[id number]/MODL MTDD
[2016-11-03] MEDS ORDERED: SENNOSIDES/DOCUSATE SODIUM TAB PO SCH (21:00)
== END 2016-11-03 13:59 | disposition home health service (06) | DRG 552 ==
LOC: OBSVTOIN 16:18 → F3N 16:23
PROVIDERS: ADMIT Internal Medicine; ATTEND Internal Medicine
DX: M54.5 Low back pain (principal); M54.10 Radiculopathy, site unspecified; R32 Unspecified urinary incontinence; I12.9 Hypertensive chronic kidney disease with stage 1 through stage 4 chronic kidney disease, or unspecified chronic kidney disease; N18.9 Chronic kidney disease, unspecified; J44.9 Chronic obstructive pulmonary disease, unspecified; E03.9 Hypothyroidism, unspecified; K59.00 Constipation, unspecified; Z86.718 Personal history of other venous thrombosis and embolism; Z79.01 Long term (current) use of anticoagulants
CPT/HCPCS: 96365; 97162-GP; 97166-GO; G8978-GP-CI; G8979-GP-CI; G8980-GP-CI; G8987-GO-CI; G8988-GO-CI; G8989-GO-CI; J1170; J2405

== ENCOUNTER 2016-11-13 08:20 | Emergency (ER) | payer OTHER ==
--- NOTE | 2016-11-13 08:39 | EDPHY ---
HPI/HX/ROS/PE/MDM Narrative: CHIEF COMPLAINT: Abnormal lab work. HPI: The patient is an 80-year-old female with history of recurrent DVT, CKD, COPD, and hypertension who comes to the ED because of abnormal lab work done yesterday. Patient saw her primary care physician yesterday for recent shortness of breath, worse when lying down. She received a call this morning to come to the ED due to elevated potassium and low sodium. No recent changes in appetite. The patient is on Warfarin. She took OxyContin at 5am. REVIEW OF SYSTEMS: Aside from elements discussed in the HPI, a comprehensive 10-point review of systems was reviewed and is negative. PMH: COPD, DVT, Asthma, CKD, HTN, Hypothyroid PSH: Cholecystectomy, Hysterectomy, Bilateral tubal ligation, Tonsillectomy SOCIAL HISTORY: . and son at bedside. PHYSICAL EXAM: General: Patient is alert, in no acute distress. ENT: Eyes are normal to inspection. ENT inspection normal. Neck: Normal inspection. Full range of motion. Respiratory: No respiratory distress. Breath sounds normal bilaterally. Cardiovascular: Regular rate and rhythm. Strong peripheral pulses. Abdomen: The abdomen is nontender to palpation. There are no peritoneal signs. There are normal bowel sounds. Back: Normal to inspection. No tenderness to palpation. Skin: Normal color. No rash. Warm and dry. Extremities: Full range of motion. 1+ pitting edema bilaterally. Neuro: Oriented x3. Normal motor function. Normal sensory function. Portions of this note were transcribed by a medical assisting instructor. I personally performed a history, physical exam, medical decision making, and confirmed accuracy of information the transcribed note. ED Course: I reviewed the patient's past medical records from recent admission 11/01/16. Plan to repeat lab work. Chest x-ray ordered. EKG was ordered and interpreted by myself. Please see [facility] [employer] system for official reading. Electrolytes are within normal limits. Chest x-ray is negative for pneumonia. Case Management spoke with the patient and her family. Plan to discharge patient home. MDM: This patient presents because her outpatient labs apparently indicated hyperkalemia and hyponatremia. Of note, we did not receive a call about this patient and she does not have her labs with her. Repeat electrolytes here in the ED are completely normal. The patient describes herself as a "tough stick" so I suspect her outpatient labs were in error. She does complain of some SOB, but there is no evidence of CHF, ACS, PNA or PTX. Her complaints on re-eval are now primarily about chronic pain which is not fully relieved with Oxycontin. She asked for stronger medication but I explained that we would be unable to further change her pain regimen and I recommended pain management follow-up. She also inquired whether her hemorrhoids could be causing her total body pain. Our case preparer and liner spoke with the patient and has provided resources for home health. I see no evidence of life-threatening pathology at this time. - Data Points Imaging Results: Imaging Impressions Chest X-Ray 11/13/16 08:41 Impression: 1. Airways disease, without pneumonia. 2. Suspect osteoporosis. This patient might benefit from a DEXA scan. Imaging: I viewed and interpreted images myself Laboratory Results: Laboratory Results 11/13/16 08:36 11/13/16 08:36 11/13/16 11/13/16 11/13/16 08:36 08:36 08:30 WBC 7.31 10^3/uL 10^3/uL (3.80-9.50) RBC 3.77 10^6/uL L 10^6/uL (4.18-5.33) Hgb 12.4 g/dL L g/dL (12.6-16.3) Hct 36.1 % L % (38.0-47.0) MCV 95.8 fL fL (81.5-99.8) MCH 32.9 pg pg (27.9-34.1) MCHC 34.3 g/dL g/dL (32.4-36.7) RDW 13.0 % % (11.5-15.2) Plt Count 148 10^3/uL L 10^3/uL (150-400) MPV 9.5 fL fL (8.7-11.7) Neut % (Auto) 68.0 % % (39.3-74.2) Lymph % (Auto) 24.1 % % (15.0-45.0) [place] % (Auto) 6.3 % % (4.5-13.0) Eos % (Auto) 0.5 % L % (0.6-7.6) Baso % (Auto) 0.4 % % (0.3-1.7) Nucleat RBC Rel Count 0.0 % % (0.0-0.2) Absolute Neuts (auto) 4.97 10^3/uL 10^3/uL (1.70-6.50) Absolute Lymphs (auto) 1.76 10^3/uL 10^3/uL (1.00-3.00) Absolute Monos (auto) 0.46 10^3/uL 10^3/uL (0.30-0.80) Absolute Eos (auto) 0.04 10^3/uL 10^3/uL (0.03-0.40) Absolute Basos (auto) 0.03 10^3/uL 10^3/uL (0.02-0.10) Absolute Nucleated RBC 0.00 10^3/uL 10^3/uL (0-0.01) Immature Gran % 0.7 % % (0.0-1.1) Immature Gran # 0.05 10^3/uL 10^3/uL (0.00-0.10) PT 24.9 SEC H SEC (12.0-15.0) INR 2.23 H (0.83-1.16) Sodium 134 mEq/L mEq/L (134-144) Potassium 4.9 mEq/L mEq/L (3.5-5.2) Chloride 98 mEq/L mEq/L (97-110) Carbon Dioxide 24 mEq/l mEq/l (22-31) Anion Gap 12 mEq/L mEq/L (8-16) BUN 28 mg/dL H mg/dL (7-23) Creatinine 1.3 mg/dL H mg/dL (0.6-1.0) Estimated GFR 39 Glucose 96 mg/dL mg/dL (70-100) Calcium 10.4 mg/dL mg/dL (8.5-10.4) Troponin I < 0.012 ng/mL ng/mL (0-0.034) NT-Pro-B Natriuret Pep 845 pg/mL H pg/mL (0-450) General Time Seen by Provider: 11/13/16 08:29 Initial Vital Signs: Initial Vital Signs Temperature (C) 37.1 C 11/13/16 08:23 Heart Rate 71 11/13/16 08:23 Respiratory Rate 16 11/13/16 08:23 Blood Pressure 177/91 H 11/13/16 08:23 O2 Sat (%) 97 11/13/16 08:23 O2 Delivery Mode Room Air O2 (L/minute) 2 Allergies/Adverse Reactions: codeine [Codeine] Allergy (Mild, Verified 09/17/16 11:13) NAUSEA Home Medications: Medication Instructions Recorded Cyanocobalamin [Vitamin B12 (*)] 1,000 mcg PO DAILY 09/17/16 Herbals/Supplements -Info Only 1 ea PO DAILY 09/17/16 Irbesartan 150 mg PO DAILY 09/17/16 Zolpidem Tartrate [Ambien 10 mg] 3.3333 - 5 mg PO HS PRN 09/17/16 Acetaminophen [Tylenol 325mg (*)] 650 mg PO Q4HRS PRN #0 tab 09/21/16 Diclofenac Sodium 1% [Voltaren Gel 1 colton TP BID #1 tube 09/21/16 (*)] Beclomethasone Qvar 80 [Qvar 80 2 puffs IH DAILY 11/01/16 (*)] Levothyroxine [Synthroid 88 mcg 88 mcg PO DAILY@04 11/01/16 (*)] Polyethylene Glycol 3350 [Miralax 8.5 gm PO BID PRN 11/01/16 17 gm (*)] Sennosides/Docusate Sodium 1 each PO BID 11/01/16 [Senokot-S] Warfarin Sodium [Coumadin 1MG (*)] 1 mg PO SUTUTHSA@16 11/01/16 Warfarin Sodium [Coumadin 4MG (*)] 4 mg PO DAILY16 11/01/16 Pregabalin [Lyrica 75mg (*)] 75 mg PO HS #30 cap 11/03/16 Departure - Departure Disposition: Home, Routine, Self-Care Clinical Impression: Laboratory test Chronic pain Qualifiers: Chronic pain type: other chronic pain Qualified Code(s): G89.29 - Other chronic pain Condition: Good Instructions: Chronic Pain (ED) Additional Instructions: Follow-up with your primary doctor within 72 hours. Return to the Emergency Department for fever, chest pain, shortness of breath, increasing pain or other worsening of condition. Referrals: AVRIL JAIN [Primary Care Provider] - 2-3 days without fail Report Scribed for: Jhonatan Roca Report Scribed by: Breanna Linares of Report: 11/13/16 Time of Report: 08:39
[2016-11-13 08:51] LABS: % IMMATURE GRANULYOCYTES 0.7 % (0.0-1.1); ABSOLUTE IMMATURE GRANULOCYTES 0.05 10^3/uL (0.00-0.10); ADD DIFF? NO; ADD MORPH? NO; ADD SCAN? NO; ATYPICAL LYMPHOCYTE FLAG 10 (0-99); FRAGMENT RBC FLAG 0 (0-99); HEMATOCRIT 36.1 % (38.0-47.0); HEMOGLOBIN 12.4 g/dL (12.6-16.3); LEFT SHIFT FLG 10 (0-99); LIPEMIA HEMOLYSIS FLAG 90 (0-99); MEAN CELL HEMOGLOBIN 32.9 pg (27.9-34.1); MEAN CELL HEMOGLOBIN CONCENTR. 34.3 g/dL (32.4-36.7); MEAN CELL VOLUME 95.8 fL (81.5-99.8); MEAN PLATELET VOLUME 9.5 fL (8.7-11.7); PLATELET CLUMPS FLAG 20 (0-99); PLATELET COUNT 148 10^3/uL (150-400); RED BLOOD CELL COUNT 3.77 10^6/uL (4.18-5.33)
[2016-11-13 09:00] LABS: ANION GAP 12 mEq/L (8-16); CALCIUM 10.4 mg/dL (8.5-10.4); CARBON DIOXIDE 24 mEq/l (22-31); CHLORIDE 98 mEq/L (97-110); CREATININE 1.3 mg/dL (0.6-1.0); GLOMERULAR FILTRATION RATE 39; GLUCOSE 96 mg/dL (70-100); POTASSIUM 4.9 mEq/L (3.5-5.2); SODIUM 134 mEq/L (134-144)
[2016-11-13 09:10] LABS: TROPONIN I < 0.012 ng/mL (0-0.034)
[2016-11-13 09:38] LABS: INR 2.23 (0.83-1.16); PROTIME(PATIENT) 24.9 SEC (12.0-15.0)
--- NOTE | 2016-11-13 09:41 | CPEKG ---
Heart Rate: 73 RR Interval: 822 P-R Interval: 152 QRSD Interval: 90 QT Interval: 380 QTC Interval: 419 P [place]: 64 QRS [place]: 81 T Wave [place]: 30 EKG Severity - BORDERLINE ECG - EKG Impression: SINUS RHYTHM EKG Impression: BORDERLINE RIGHT AXIS DEVIATION EKG Impression: BORDERLINE INFERIOR Q WAVES Electronically Signed By: Devante Lane 14-Nov-2016 14:01:10
[2016-11-13 10:27] VITALS: BP 157/71; PULSE 85; RESP 20; O2SAT 96
[2016-11-13 10:43] VITALS: TEMP 98.2
== END 2016-11-13 10:43 | disposition home or self-care (01) ==
DX: Z00.00 Encounter for general adult medical examination without abnormal findings (principal); G89.29 Other chronic pain; J44.9 Chronic obstructive pulmonary disease, unspecified; I12.9 Hypertensive chronic kidney disease with stage 1 through stage 4 chronic kidney disease, or unspecified chronic kidney disease; N18.9 Chronic kidney disease, unspecified; Z79.01 Long term (current) use of anticoagulants

== ENCOUNTER 2017-03-27 12:51 | Emergency (ER) | payer OTHER ==
[2017-03-27 13:15] VITALS: TEMP 97.9
--- NOTE | 2017-03-27 15:17 | EDPHY ---
H & P Stated Complaint: ABDOMINAL PAIN AND BLOATING. SENT BY GI FOR CT. HPI/ROS: CHIEF COMPLAINT: Abdominal pain HISTORY OF PRESENT ILLNESS: The patient is an anticoagulated 81 y/o female complaining of abdominal pain. She has had mild chronic left upper quadrant pain for 5 years. 2 weeks ago her abdominal pain began to worsen and radiate to her entire abdomen. She stopped taking her Senokot, which alleviated her pain. However, the abdominal pain returned 3 days ago. Today she saw Dr. Wick, who advised her to go to the ED if her pain did not improve. In addition to her abdominal pain, she has had suprapubic pain while urinating and more frequent bowel movements (formed, no blood). She took Tylenol today without much relief. Denies vomiting, nausea, diarrhea, fever, hematochezia or other pertinent symptoms. REVIEW OF SYSTEMS: A ten point review of systems was performed and is negative with the exception of the items mentioned in the HPI. Past medical history: Diverticulitis--described as "mild" on CT 07/2015 Asthma COPD Hypertension Hypothyroidism DVTs Chronic renal insufficiency Past surgical history: Cholecystectomy Tonsillectomy Hysterectomy Bilateral tubal ligation Family history: Denies Social history: at bedside Lives in [place] Retired General Appearance: Alert. Vital signs reviewed. Blood pressure 170/94. Eyes: Pupils equal and round, no conjunctival injection, no discharge. Anicteric. ENT, Mouth: Mucous membranes are moist, no oropharyngeal erythema or edema. Neck: No lymphadenopathy, supple. Respiratory: Lungs are clear to auscultation anteriorly and laterally; no wheezes, rales, or rhonchi. Cardiovascular: Regular rate and rhythm; no murmur, rub, or gallop. Gastrointestinal: 3 inches lateral to umbilicus there is point tenderness radiating into back by her descriltion. No guarding. Mild suprapubic tenderness. No masses or organomegaly, bowel sounds present. Skin: Warm and dry, no rashes on exposed skin, normal color. Back: Left flank tenderness laterally. Nontender to palpation over the thoracolumbar spine. No CVAT. Extremities: No lower extremity edema, no calf tenderness or swelling. Neurological: Alert and oriented. Moving all four extremities easily and equally. Psychiatric: Normal affect. - Personal History Current Tetanus/Diphtheria Vaccine: Yes Current Tetanus Diphtheria and Acellular Pertussis (TDAP): Yes - Medical/Surgical History Hx Asthma: Yes Hx Chronic Respiratory Disease: No Hx Diabetes: No Hx Cardiac Disease: No Hx Renal Disease: No Hx Cirrhosis: No Hx Alcoholism: No Hx HIV/AIDS: No Hx Splenectomy or Spleen Trauma: No Other PMH: 1. Asthma. 2. Cholecystectomy. 3. Hypothyroidism. 4. DVTs. 5. Tonsillectomy. 6. Hysterectomy. 7. Bilateral tubal ligation. 8. Chronic renal insufficiency. I reviewed the patient's past medical notes. - Social History Smoking Status: Never smoked Constitutional: Initial Vital Signs Temperature (C) 36.6 C 03/27/17 13:10 Heart Rate 80 03/27/17 13:10 Respiratory Rate 15 03/27/17 13:10 Blood Pressure 170/94 H 03/27/17 13:10 O2 Sat (%) 96 03/27/17 13:10 O2 Delivery Mode Room Air O2 (L/minute) 2 Allergies/Adverse Reactions: codeine [Codeine] Allergy (Mild, Verified 09/17/16 11:13) NAUSEA Home Medications: Medication Instructions Recorded Cyanocobalamin [Vitamin B12 (*)] 1,000 mcg PO DAILY 09/17/16 Herbals/Supplements -Info Only 1 ea PO DAILY 09/17/16 Irbesartan 150 mg PO DAILY 09/17/16 Zolpidem Tartrate [Ambien 10 mg] 3.3333 - 5 mg PO HS PRN 09/17/16 Acetaminophen [Tylenol 325mg (*)] 650 mg PO Q4HRS PRN #0 tab 09/21/16 Diclofenac Sodium 1% [Voltaren Gel 1 colton TP BID #1 tube 09/21/16 (*)] Beclomethasone Qvar 80 [Qvar 80 2 puffs IH DAILY 11/01/16 (*)] Levothyroxine [Synthroid 88 mcg 88 mcg PO DAILY@04 11/01/16 (*)] Polyethylene Glycol 3350 [Miralax 8.5 gm PO BID PRN 11/01/16 17 gm (*)] Sennosides/Docusate Sodium 1 each PO BID 11/01/16 [Senokot-S] Warfarin Sodium [Coumadin 1MG (*)] 1 mg PO SUTUTHSA@16 11/01/16 Warfarin Sodium [Coumadin 4MG (*)] 4 mg PO DAILY16 11/01/16 Pregabalin [Lyrica 75mg (*)] 75 mg PO HS #30 cap 11/03/16 Medical Decision Making - Diagnostics Imaging: Discussed imaging studies w/ network security consultant Radiologist, I viewed and interpreted images myself ED Course/Re-evaluation: The patient is an anticoagulated 81 y/o female presenting with left-sided abdominal pain that has been worsening for the past 3 days. Her bowel sounds are present on exam. 1550: Reassessed patient and completed her physical exam. She has tenderness to her left flank laterally, 3 inches lateral to umbilicus point tenderness radiating into her back, and suprapubic tenderness. Will assess for UTI. No evidence of hernia on exam. 1608: Patient's urine does not show signs of infection but is positive for blood. She has a normal WBC. She will receive an abdominopelvic CT scan (? stone ). 1630: Reassessed patient and discussed plan for CT scan, she is comfortable with this plan. 1705: Spoke with radiologist, he reports there are no findings on her abdominopelvic CT to explain her pain--no stone. CT was compared to a previous. 1710: Patient is still in pain; 50mcg IV Fentanyl administered. 1725: Reassessed patient and discussed negative CT scan. She is feeling better after the Fentanyl. She also mentioned that when she urinates she feels like she has to go twice before she feels empty. 1828: Reassessed patient, her pain medication has worn off. She is feeling bloated, but is not in pain. I have advised her to take Tylenol for her symptoms. She would like to take Miralax and I think that is fine. Return precautions provided; patient and her are comfortable with this plan. Differential Diagnosis: Abdominal pain including but not limited to appendicitis, hernia, diverticulitis , bowel obstruction, gastritis, ureterolithiasis,pyelonephritis, and urinary tract infection. - Data Points Laboratory Results: Laboratory Results 03/27/17 15:41 03/27/17 15:41 Medications Given: Discontinued Medications Fentanyl (Sublimaze) 50 mcg IVP EDNOW ONE Stop: 03/27/17 17:17 Last Admin: 03/27/17 17:18 Dose: 50 mcg Departure - Departure Disposition: Home, Routine, Self-Care Clinical Impression: Constipation Qualifiers: Constipation type: unspecified constipation type Qualified Code(s): K59.00 - Constipation, unspecified Abdominal pain Qualifiers: Abdominal location: generalized Qualified Code(s): R10.84 - Generalized abdominal pain Condition: Good Instructions: Constipation (ED), Acute Abdominal Pain (ED) Additional Instructions: Take Miralax as instructed. You cant take up to 3000mg of Tylenol in a 24 hour time period, it is okay to take 2 of your 350mg pills in one sitting. Follow up with Dr. Andrew, insurance inspector, in the next week. Return to the emergency department if you experience fever, chest pain, shortness of breath or other worsening of your symptoms. Referrals: AVRIL JAIN [Primary Care Provider] - As per Instructions David Wick MD [Medical Doctor] - As per Instructions Report Scribed for: Rosaura Manuel Report Scribed by: Chana Woods Date of Report: 03/27/17 Time of Report: 15:18 Physician Review and Approval Statement: 03/27/17 15:17 Portions of this note were transcribed by the medical device sales representative. I, Dr. Rosaura Manuel, personally performed the history, physical exam, and medical decision- making; and confirmed the accuracy of the information in the transcribed note.
[2017-03-27 15:36] LABS: COLOR PALE YELLOW; LEUKOCYTE ESTERASE,URINE NEGATIVE (NEGATIVE); NITRITE,URINE NEGATIVE (NEGATIVE)
[2017-03-27 15:51] LABS: % IMMATURE GRANULYOCYTES 0.4 % (0.0-1.1); ABSOLUTE IMMATURE GRANULOCYTES 0.03 10^3/uL (0.00-0.10); ADD DIFF? NO; ADD MORPH? NO; ADD SCAN? NO; ATYPICAL LYMPHOCYTE FLAG 10 (0-99); FRAGMENT RBC FLAG 0 (0-99); HEMATOCRIT 36.1 % (38.0-47.0); HEMOGLOBIN 12.8 g/dL (12.6-16.3); LEFT SHIFT FLG 0 (0-99); LIPEMIA HEMOLYSIS FLAG 90 (0-99); MEAN CELL HEMOGLOBIN 34.7 pg (27.9-34.1); MEAN CELL HEMOGLOBIN CONCENTR. 35.5 g/dL (32.4-36.7); MEAN CELL VOLUME 97.8 fL (81.5-99.8); MEAN PLATELET VOLUME 8.7 fL (8.7-11.7); PLATELET CLUMPS FLAG 10 (0-99); PLATELET COUNT 159 10^3/uL (150-400); RED BLOOD CELL COUNT 3.69 10^6/uL (4.18-5.33); RED CELL DISTRIBUTION WIDTH 12.3 % (11.5-15.2)
[2017-03-27 16:06] LABS: ANION GAP 10 mEq/L (8-16); CALCIUM 10.5 mg/dL (8.5-10.4); CARBON DIOXIDE 24 mEq/l (22-31); CHLORIDE 101 mEq/L (97-110); CREATININE 1.2 mg/dL (0.6-1.0); GLOMERULAR FILTRATION RATE 43; GLUCOSE 80 mg/dL (70-100); POTASSIUM 4.7 mEq/L (3.5-5.2); SODIUM 135 mEq/L (134-144)
[2017-03-27] MEDS ORDERED: fentaNYL 100 MCG/2 ML INJ ONE (17:15)
[2017-03-27] MEDS ORDERED: fentaNYL 100 MCG/2 ML INJ IVP ONE (17:16)
[2017-03-27 18:51] VITALS: BP 136/60; PULSE 67; RESP 16; O2SAT 92
== END 2017-03-27 18:46 | disposition home or self-care (01) ==
DX: K59.00 Constipation, unspecified (principal); J44.9 Chronic obstructive pulmonary disease, unspecified; I10 Essential (primary) hypertension; Z79.01 Long term (current) use of anticoagulants; Z90.49 Acquired absence of other specified parts of digestive tract; Z90.710 Acquired absence of both cervix and uterus; Z98.51 Tubal ligation status
CPT/HCPCS: 74176; 96374; 99285; J3010

== ENCOUNTER 2017-05-06 08:11 | Emergency (ER) | payer OTHER ==
[2017-05-06 08:20] VITALS: TEMP 97.9; O2SAT 98
--- NOTE | 2017-05-06 08:58 | EDPHY ---
H & P Stated Complaint: LLE swelling Time Seen by Provider: 05/06/17 08:43 HPI/ROS: CHIEF COMPLAINT: Left lower extremity swelling and pain HISTORY OF PRESENT ILLNESS: The patient has a history of recurrent DVTs and is currently anticoagulated with Coumadin. She rates her pain is mild in nature. It is worsened with palpation and ambulation. She presents to the ED for evaluation of mild calf pain and swelling. The patient denies any history of fall or trauma. She denies chest pain or shortness of breath. The patient does have chronic back pain, renal insufficiency and hypertension. The patient denies any acute numbness or weakness. The patient denies any fever, cough or congestion. She has no additional acute complaints. REVIEW OF SYSTEMS: A comprehensive 10 point review of systems is otherwise negative aside from elements mentioned in the history of present illness. Source: Patient Exam Limitations: No limitations - Personal History Current Tetanus/Diphtheria Vaccine: Yes Current Tetanus Diphtheria and Acellular Pertussis (TDAP): Yes - Medical/Surgical History Hx Asthma: Yes Hx Chronic Respiratory Disease: No Hx Diabetes: No Hx Cardiac Disease: No Hx Renal Disease: No Hx Cirrhosis: No Hx Alcoholism: No Hx HIV/AIDS: No Hx Splenectomy or Spleen Trauma: No Other PMH: 1. Asthma. 2. Cholecystectomy. 3. Hypothyroidism. 4. DVTs. 5. Tonsillectomy. 6. Hysterectomy. 7. Bilateral tubal ligation. 8. Chronic renal insufficiency. I reviewed the patient's past medical notes. - Social History Smoking Status: Never smoked Constitutional: Initial Vital Signs Temperature (C) 36.6 C 05/06/17 08:17 Heart Rate 83 05/06/17 08:17 Respiratory Rate 16 05/06/17 08:17 Blood Pressure 145/73 H 05/06/17 08:17 O2 Sat (%) 98 05/06/17 08:17 O2 Delivery Mode Room Air Allergies/Adverse Reactions: codeine [Codeine] Allergy (Mild, Verified 05/06/17 08:15) NAUSEA Home Medications: Medication Instructions Recorded Cyanocobalamin [Vitamin B12 (*)] 1,000 mcg PO DAILY 09/17/16 Herbals/Supplements -Info Only 1 ea PO DAILY 09/17/16 Irbesartan 150 mg PO DAILY 09/17/16 Zolpidem Tartrate [Ambien 10 mg] 3.3333 - 5 mg PO HS PRN 09/17/16 Acetaminophen [Tylenol 325mg (*)] 650 mg PO Q4HRS PRN #0 tab 09/21/16 Diclofenac Sodium 1% [Voltaren Gel 1 colton TP BID #1 tube 09/21/16 (*)] Beclomethasone Qvar 80 [Qvar 80 2 puffs IH DAILY 11/01/16 (*)] Levothyroxine [Synthroid 88 mcg 88 mcg PO DAILY@04 11/01/16 (*)] Polyethylene Glycol 3350 [Miralax 8.5 gm PO BID PRN 11/01/16 17 gm (*)] Sennosides/Docusate Sodium 1 each PO BID 11/01/16 [Senokot-S] Warfarin Sodium [Coumadin 1MG (*)] 1 mg PO SUTUTHSA@16 11/01/16 Warfarin Sodium [Coumadin 4MG (*)] 4 mg PO DAILY16 11/01/16 Probiotic 05/06/17 Medical Decision Making - Diagnostics Imaging Results: Imaging Impressions Extremity Venous Study 05/06/17 08:39 Impression: Left leg acute on chronic occlusive deep venous thrombosis involving the left iliac vein and common femoral vein, likely worse since the previous study, since now it appears occlusive. Findings and recommendations discussed with Emergency Department physician, Jose Strauss PA-C at 10:23 hour, 05/06/2017. Final report concurs with initial preliminary interpretation. ED Course/Re-evaluation: The patient presents to the emergency department for evaluation of slightly worsening chronic lower extremity edema. She has a history of known thromboembolic disease. Her ultrasound demonstrated possible portion of the clot. I did review this ultrasound with Dr. Ángel Peck from Radiology who reviewed all of her prior studies and feels there is no evidence of progressive thromboembolic disease. The patient has no evidence of an ischemic leg. She has no evidence of vascular insufficiency. She will be advised to take Tylenol for pain. Warm compress as needed for pain. She should follow up with her primary care provider. Differential Diagnosis: Differential diagnosis considered includes arterial thrombosis, worsening lower extremity DVT, venous insufficiency - Data Points Laboratory Results: Laboratory Results 05/06/17 08:05 05/06/17 08:05 05/06/17 05/06/17 05/06/17 08:05 08:05 08:05 WBC 5.35 10^3/uL 10^3/uL (3.80-9.50) RBC 3.68 10^6/uL L 10^6/uL (4.18-5.33) Hgb 12.4 g/dL L g/dL (12.6-16.3) Hct 36.4 % L % (38.0-47.0) MCV 98.9 fL fL (81.5-99.8) MCH 33.7 pg pg (27.9-34.1) MCHC 34.1 g/dL g/dL (32.4-36.7) RDW 12.3 % % (11.5-15.2) Plt Count 147 10^3/uL L 10^3/uL (150-400) MPV 9.1 fL fL (8.7-11.7) Neut % (Auto) 67.4 % % (39.3-74.2) Lymph % (Auto) 25.2 % % (15.0-45.0) [place] % (Auto) 6.2 % % (4.5-13.0) Eos % (Auto) 0.4 % L % (0.6-7.6) Baso % (Auto) 0.4 % % (0.3-1.7) Nucleat RBC Rel Count 0.0 % % (0.0-0.2) Absolute Neuts (auto) 3.61 10^3/uL 10^3/uL (1.70-6.50) Absolute Lymphs (auto) 1.35 10^3/uL 10^3/uL (1.00-3.00) Absolute Monos (auto) 0.33 10^3/uL 10^3/uL (0.30-0.80) Absolute Eos (auto) 0.02 10^3/uL L 10^3/uL (0.03-0.40) Absolute Basos (auto) 0.02 10^3/uL 10^3/uL (0.02-0.10) Absolute Nucleated RBC 0.00 10^3/uL 10^3/uL (0-0.01) Immature Gran % 0.4 % % (0.0-1.1) Immature Gran # 0.02 10^3/uL 10^3/uL (0.00-0.10) PT 27.5 SEC H SEC (12.0-15.0) INR 2.56 H (0.83-1.16) Sodium 142 mEq/L mEq/L (134-144) Potassium 5.2 mEq/L mEq/L (3.5-5.2) Chloride 109 mEq/L mEq/L (97-110) Carbon Dioxide 22 mEq/l mEq/l (22-31) Anion Gap 11 mEq/L mEq/L (8-16) BUN 28 mg/dL H mg/dL (7-23) Creatinine 1.1 mg/dL H mg/dL (0.6-1.0) Estimated GFR 48 Glucose 90 mg/dL mg/dL (70-100) Calcium 10.0 mg/dL mg/dL (8.5-10.4) Departure - Departure Disposition: Home, Routine, Self-Care Clinical Impression: Chronic deep vein thrombosis (DVT) Qualifiers: DVT location: lower extremity Affected thrombotic vein of extremity: iliac Laterality: left Qualified Code(s): I82.522 - 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 Tylenol as needed for pain. 2. Warm compress/heating pad as needed for your symptoms. 3. Try and elevate your extremity while sleeping. 4. Return to the ED for markedly worsening pain, swelling, numbness or other concerns. 5. Please follow up with your primary care provider as needed. Referrals: AVRIL JAIN [Primary Care Provider] - As per Instructions
[2017-05-06 09:01] LABS: PLATELET COUNT 147 10^3/uL (150-400)
[2017-05-06 09:14] LABS: INR 2.56 (0.83-1.16); PROTIME(PATIENT) 27.5 SEC (12.0-15.0)
[2017-05-06 12:47] VITALS: BP 140/77; PULSE 74; RESP 18
== END 2017-05-06 12:47 | disposition home or self-care (01) ==
DX: I82.522 Chronic embolism and thrombosis of left iliac vein (principal); J45.909 Unspecified asthma, uncomplicated; Z79.01 Long term (current) use of anticoagulants